=== PATIENT | male | born 1950 | race Caucasian/White ===

== ENCOUNTER → 2016-10-21 | Outpatient (CLI) | payer MEDICARE ==
[2016-10-21 17:46] LABS: BLOOD UREA NITROGEN 17 MG/DL (7-18); CREATININE FOR GFR 1.01 MG/DL (0.70-1.30); GLOMERULAR FILTRATION RATE > 60.0 (>49)
== END | disposition home or self-care (01) ==
LOC: M LAB 15:42
PROVIDERS: ATTEND Urology
DX: C61 Malignant neoplasm of prostate (principal)

== ENCOUNTER → 2016-10-27 | Outpatient (CLI) | payer MEDICARE ==
[~2016-10-27] MED LIST: GASTROGRAFIN SOLUTION 30ML (Q9963) As Ordered ONE; ISOVUE-370 76% 100ML VIAL (Q9967) As Ordered ONE
--- NOTE | 2016-10-27 12:57 | REP ---
Clinical: Prostate cancer. Technique: Axial contrast enhanced images from the lung bases to the pubic symphysis using oral and 100 ml Isovue 370 intravenous contrast material with precontrast images of the abdomen as well as delayed images of the abdomen and pelvis with coronal and sagittal re-formations. Comparison: 11/23/2006. Findings: Lung bases are clear. Visualized heart and pericardium are normal. Liver, spleen, pancreas, gallbladder, bilateral adrenal glands and kidneys are essentially normal. Few benign-appearing subcentimeter renal cysts noted best on delayed imaging. The enteric system demonstrates colonic and predominately sigmoid diverticulosis without evidence for acute obstruction or inflammatory process. Pelvis demonstrates enlarged heterogeneous prostate gland with chronic calcifications to the prostate and seminal vesicles. The bladder is grossly unremarkable. No pelvic fluid or ascites. No intraperitoneal or retroperitoneal adenopathy. Atherosclerotic changes of the vasculature noted without aneurysm. Musculoskeletal structures demonstrate degenerative changes without focal osseous abnormality. Impression: Mildly enlarged heterogeneous prostate gland. Colonic/sigmoid diverticulosis without acute diverticulitis. Signed by Marcell Dorman MD 10/27/2016 12:49 P
--- NOTE | 2016-10-27 15:14 | REP ---
WHOLE BODY RADIONUCLIDE BONE SCAN: HISTORY: Prostate carcinoma. Pain in bilateral hips. Comparison is made with today's CT study. TECHNIQUE: 21.7 mCi of technetium 99m MDP is injected, and standard whole body bone scan imaging is acquired. SCINTIGRAPHIC FINDINGS: There is a normal distribution of skeletal tracer with uptake in bilateral kidneys and in the urinary bladder. There is mild osteoarthritic facet uptake in the left posterior cervical spine as well as arthritic uptake in both shoulders, both wrists, both knees, and both feet. There is no evidence to suggest skeletal metastatic disease. No abnormal uptake is seen in the hips or pelvis. IMPRESSION: No evidence to suggest bony metastatic disease. Signed by Sarkis Pappas MD 10/27/2016 04:51 P
== END | disposition home or self-care (01) ==
LOC: M RAD 10:50
PROVIDERS: ATTEND Urology
DX: C61 Malignant neoplasm of prostate (principal); N40.0 Benign prostatic hyperplasia without lower urinary tract symptoms; K57.90 Diverticulosis of intestine, part unspecified, without perforation or abscess without bleeding
CPT/HCPCS: 74178; 78306; A9503; Q9963; Q9967

== ENCOUNTER 2017-02-02 09:13 | Outpatient (RCR) | payer MEDICARE ==
--- NOTE | 2017-02-02 09:30 | RADONC ---
RADIATION ONCOLOGY SIMULATION NOTE DATE: 02/02/2017 Mr. Peck was taken to the CT scan for CT simulation of his prostate field. CT was accomplished without difficulty or discomfort. Radiation treatment planning is underway and radiation treatments will begin subsequently. I was physically present throughout the course of CT simulation. An immobilization device was created and will be used throughout the course of treatment. It was also created without difficulty or discomfort.
== END 2017-02-12 ==
LOC: M ONCR 09:13
PROVIDERS: ATTEND Radiology Radiation Oncology
DX: C61 Malignant neoplasm of prostate (principal)

== ENCOUNTER → 2017-02-02 | Outpatient (CLI) | payer MEDICARE ==
[2017-02-02 09:32] LABS: MEAN CORPUSCULAR HEMOGLOBIN 32.9 pg (27.0-33.0); MEAN CORPUSCULAR VOLUME 94.1 fl (80.0-96.0); RED CELL DISTRIBUTION WIDTH 11.7 % (11.5-14.5); WHITE BLOOD COUNT 4.7 K/mm3 (4.0-10.0)
== END ==
LOC: M RAD 08:24
PROVIDERS: ATTEND Radiology Radiation Oncology
DX: C61 Malignant neoplasm of prostate (principal); Z79.899 Other long term (current) drug therapy

== ENCOUNTER 2017-02-13 09:12 | Outpatient (RCR) | payer MEDICARE ==
--- NOTE | 2017-02-20 14:09 | RADONC ---
RADIATION ONCOLOGY PROGRESS NOTE DATE: 02/20/2017 CHART NUMBER: [id number] Mr. Peck is presently at a dose of 900 cGy to his prostate and is tolerating treatments quite well at this point with no complaints related to his radiation therapy. He is having no urinary or bowel difficulties and no bone pain. The patient's review of systems is noncontributory. He denies nausea, vomiting, fevers, chills, night sweats, diplopia, headaches, anxiety or depression, anorexia, weight loss, visual disturbances, chest pain, urinary or bowel difficulties, bone pain, or neurological problems. PHYSICAL EXAMINATION: The patient's skin is in good condition with no evidence of radiation change present. There is no moist or dry desquamation. The remainder of his physical exam remains unchanged. Mr. Peck is tolerating treatments quite well and radiation will continue as scheduled.
--- NOTE | 2017-02-27 14:47 | RADONC ---
RADIATION ONCOLOGY PROGRESS NOTE DATE: 02/27/2017 CHART NUMBER: Mr. Peck is presently at a dose of 1800 cGy to his prostate and is tolerating treatments quite well at this point with no complaints related to his radiation therapy. He is having no urinary or bowel difficulties and no bone pain. REVIEW OF SYSTEMS: The patient's review of systems is noncontributory. He denies nausea, vomiting, fevers, chills, night sweats, diplopia, headaches, anxiety or depression, anorexia, weight loss, visual disturbances, chest pain, urinary or bowel difficulties, bone pain or neurological problems. PHYSICAL EXAMINATION: The patient's skin is in good condition with no evidence of radiation change present. The remainder of his physical exam remains unchanged. Mr. Peck is tolerating treatments quite well and radiation will continue as scheduled.
--- NOTE | 2017-03-06 14:08 | RADONC ---
RADIATION ONCOLOGY PROGRESS NOTE DATE: 03/06/2017 CHART NUMBER: [id number] Mr. Peck is presently at a dose of 2700 cGy to his prostate and is tolerating treatments quite well at this point with no complaints related to his radiation therapy. He is having no urinary or bowel difficulties. No bone pain. REVIEW OF SYSTEMS: The patient's review of systems is noncontributory. Denies nausea, vomiting, fevers, chills, night sweats, diplopia, headaches, anxiety or depression, anorexia, weight loss, visual disturbances, chest pain, urinary or bowel difficulties, bone pain, or neurological problems. PHYSICAL EXAMINATION: The patient's skin is in good condition at this point with no evidence of moist or dry desquamation. The remainder of his physical exam remains unchanged. Mr. Peck is tolerating treatments quite well and radiation will continue as scheduled.
--- NOTE | 2017-03-14 14:10 | RADONC ---
RADIATION ONCOLOGY PROGRESS NOTE DATE: 03/14/2017 CHART NUMBER: [id number] Mr. Peck is presently at a dose of 3600 cGy to his prostate and is tolerating treatments quite well at this point with no complaints related to his radiation therapy. He is having no urinary bowel difficulties and no bone pain. REVIEW OF SYSTEMS: The patient's review of systems is noncontributory. Denies nausea, vomiting, fevers, chills, night sweats, diplopia, headaches, anxiety or depression, anorexia, weight loss, visual disturbances, chest pain, urinary or bowel difficulties, bone pain, or neurological problems. PHYSICAL EXAMINATION: The patient's skin is in good condition with no evidence of radiation change present. There is no moist or dry desquamation. The remainder of his physical exam remains unchanged. Mr. Peck is tolerating treatments quite well and radiation will continue as scheduled.
== END 2017-03-15 ==
LOC: M ONCR 09:12
PROVIDERS: ATTEND Radiology Radiation Oncology
DX: C61 Malignant neoplasm of prostate (principal)

== ENCOUNTER → 2017-03-06 | Outpatient (REF) | payer MEDICARE | LOC: M LAB REF 14:57 | PROVIDERS: ATTEND Urology | DX: N39.0 Urinary tract infection, site not specified (principal) ==

== ENCOUNTER 2017-03-16 09:00 | Outpatient (RCR) | payer MEDICARE ==
--- NOTE | 2017-03-21 14:45 | RADONC ---
RADIATION ONCOLOGY PROGRESS NOTE DATE: 03/21/2017 CHART NUMBER: [id number] Mr. Peck is presently at a dose of 4500 cGy to his prostate and is tolerating treatments quite well at this point with no complaints related to his radiation therapy. He is having no urinary or bowel difficulties and no bone pain. The patient's review of systems is noncontributory. He denies nausea, vomiting, fevers, chills, night sweats, diplopia, headaches, anxiety or depression, anorexia, weight loss, visual disturbances, chest pain, urinary or bowel difficulties, bone pain, or neurological problems. PHYSICAL EXAMINATION: The patient's skin is in good condition with no evidence of moist or dry desquamation. The remainder of his physical exam remains unchanged. Mr. Peck is tolerating treatments quite well and radiation will continue as scheduled.
--- NOTE | 2017-03-28 07:31 | RADONC ---
RADIATION ONCOLOGY PROGRESS NOTE DATE: 03/27/2017 CHART NUMBER: [id number] Mr. Peck is presently at a dose of 5220 cGy to his prostate and is tolerating treatments quite well at this point with no significant difficulties related to his radiation therapy. He is having no urinary or bowel problems or bone pain other than some minimal hematuria. REVIEW OF SYSTEMS: The patient's review of systems is noncontributory except for the hematuria. Denies nausea, vomiting, fevers, chills, night sweats, diplopia, headaches, anxiety or depression, anorexia, weight loss, visual disturbances, chest pain, urinary or bowel difficulties, bone pain, or neurological problems. PHYSICAL EXAMINATION: The patient's skin is in good condition with no evidence of radiation change present. There is no moist or dry desquamation. The remainder of his physical exam remains unchanged. Mr. Peck is tolerating treatments quite well and radiation will continue as scheduled.
--- NOTE | 2017-04-03 14:32 | RADONC ---
RADIATION ONCOLOGY PROGRESS NOTE: DATE: 04/03/2017 CHART NUMBER: [id number] Mr. Peck is presently at a dose of 6120 cGy to his prostate and is tolerating treatments quite well at this point with no complaints related to his radiation therapy. He is having no urinary or bowel difficulties and no bone pain. REVIEW OF SYSTEMS: The patient's review of systems is noncontributory. Denies nausea, vomiting, fevers, chills, night sweats, diplopia, headaches, anxiety or depression, anorexia, weight loss, visual disturbances, chest pain, urinary or bowel difficulties, bone pain, or neurological problems. PHYSICAL EXAMINATION: The patient's skin is in good condition with no evidence of moist or dry desquamation. The remainder of his physical exam remains unchanged. Mr. Peck is tolerating treatments quite well and radiation will continue as scheduled.
--- NOTE | 2017-04-11 07:50 | RADONC ---
RADIATION ONCOLOGY PROGRESS NOTE: DATE: 04/10/2017 CHART NUMBER: [id number]. PROGRESS NOTE: Mr. Peck is presently at a dose of 6840 cGy to his prostate and is tolerating treatments quite well at this point with no complaints related to his radiation therapy. He is having no urinary or bowel difficulties and no bone pain. REVIEW OF SYSTEMS: The patient's review of systems is noncontributory. Denies nausea, vomiting, fevers, chills, night sweats, diplopia, headaches, anxiety or depression, anorexia, weight loss, visual disturbances, chest pain, urinary or bowel difficulties, bone pain, or neurological problems. PHYSICAL EXAMINATION: The patient's skin is in good condition with no evidence of moist or dry desquamation. The remainder of his physical exam remains unchanged. Mr. Peck is tolerating treatments quite well and radiation will continue as scheduled.
[2017-07-31] MEDS ORDERED: LUTECAP2 PO (09:57)
[2017-07-31] MEDS ORDERED: LISI40TAB PO (09:57)
[2017-07-31] MEDS ORDERED: FISH100049 PO (09:57)
== END 2017-04-14 ==
LOC: M ONCR 09:00
PROVIDERS: ATTEND Radiology Radiation Oncology
DX: C61 Malignant neoplasm of prostate (principal)

== ENCOUNTER 2017-04-19 08:30 | Outpatient (RCR) | payer MEDICARE ==
--- NOTE | 2017-04-21 09:45 | RADONC ---
RADIATION ONCOLOGY PROGRESS NOTE: DATE OF SERVICE: 04/29/2017 CHART NUMBER: [id number] Mr. Peck is presently at a dose of 7740 cGy to his prostate and is tolerating treatments quite well at the point with no complaints related to his radiation therapy. He is having no significant urinary or bowel difficulties. No bone pain. REVIEW OF SYSTEMS: The patient's review of systems is noncontributory. He denies nausea, vomiting, fevers, chills, night sweats, diplopia, headaches, anxiety or depression, anorexia, weight loss, visual disturbances, chest pain, urinary or bowel difficulties, bone pain, or neurological problems. PHYSICAL EXAMINATION: The patient's skin is in good condition with no evidence of radiation change present. There is no moist or dry desquamation. The remainder of his physical exam remains unchanged. Mr. Peck is tolerating treatments quite well and radiation will continue as scheduled.
--- NOTE | 2017-04-21 10:30 | RADONC ---
RADIATION ONCOLOGY TREATMENT SUMMARY DATE: 04/20/2017 CHART NUMBER: [id number] DIAGNOSIS: Prostate cancer. STAGE: IIB, [id number]. ECOG PERFORMANCE STATUS: 0. TREATMENT SUMMARY Mr. Peck is a very pleasant 66-year-old white male with the diagnosis of a stage IIB, [id number], moderately differentiated Hernesto score 7 (4-3) adenocarcinoma of prostate with a PSA score of 55.05 who presented to us for consideration of definitive external beam radiation therapy with IMRT/IGRT. We treated the patient to his prostate for a total dose 7920 cGy delivered in 44 fractions of 180 cGy each over 63 elapsed days from 02/14/2017 through 04/20/2017. The patient's prostate was treated on a linear accelerator utilizing a 6 MV photon beam via IMRT/IGRT. We initially treated the prostate, seminal vesicles and first echelon of lymph nodes for a dose of 4500 cGy and subsequently coned down to the prostate and seminal vesicles delivering an additional 900 cGy bringing the seminal vesicles to a total dose of 5400 cGy. Finally we boosted the prostate itself for an additional 2520 cGy once again bringing it to a total dose of 7920 cGy. Mr. Peck tolerated his treatments quite well and was able to complete therapy as prescribed. I have scheduled the patient to see me again in 1 month for further followup. He will also continue to be followed by his other physicians as well. cc: MD Ismael Cruz PA
[2017-07-31] MEDS ORDERED: LISI40TAB PO (09:57)
[2017-07-31] MEDS ORDERED: LUTECAP2 PO (09:57)
[2017-07-31] MEDS ORDERED: FISH100049 PO (09:57)
== END 2017-05-15 ==
LOC: M ONCR 08:30
PROVIDERS: ATTEND Radiology Radiation Oncology
DX: C61 Malignant neoplasm of prostate (principal)

== ENCOUNTER → 2017-05-24 | Outpatient (CLI) | payer MEDICARE ==
[~2017-05-24] MED LIST changes: +FISH100049 PO; -GASTROGRAFIN SOLUTION 30ML (Q9963) As Ordered ONE; -ISOVUE-370 76% 100ML VIAL (Q9967) As Ordered ONE; +LISI40TAB PO; +LUTECAP2 PO
--- NOTE | 2017-05-25 07:27 | RADONC ---
RADIATION ONCOLOGY FOLLOWUP NOTE: DATE: 05/24/2017 DIAGNOSIS: Prostate cancer. STAGE: II B, [id number] ECOG PERFORMANCE STATUS: 0 Mr. Peck is a very pleasant 67-year-old white male with the diagnosis of a stage II B, [id number], moderately differentiated Hernesto score 7 (4-3) adenocarcinoma of prostate with a PSA score of 55.05 who is presenting to us today for routine followup visit 1 month post completion of external beam radiation therapy. The patient presents today reporting he is doing quite well with no complaints at this time related to his radiation therapy or disease. He has no urinary or bowel difficulties and no bone pain. REVIEW OF SYSTEMS: The patient's review of systems is noncontributory. He denies nausea, vomiting, fevers, chills, night sweats, diplopia, headaches, anxiety or depression, anorexia, weight loss, visual disturbances, chest pain, urinary or bowel difficulties, bone pain, or neurological problems. PHYSICAL EXAMINATION: The patient is a well-developed, well-nourished male in no acute distress. HEENT exam is normocephalic, atraumatic. Extraocular movements are intact. There is no palpable cervical, supraclavicular, infraclavicular, axillary, or inguinal lymphadenopathy present. Lungs are clear to auscultation and percussion. Heart has a regular rate and rhythm. Abdomen is benign with no hepatosplenomegaly, masses, or tenderness. Rectal examination reveals a normal anal sphincter tone. His prostate is smooth with no evidence of nodularity. Skeletal examination reveals no tenderness to pressure or percussion of the bony skeleton. Extremities reveal no clubbing, cyanosis, or edema. Neurologic exam is grossly intact, as is the remainder of the physical examination. ASSESSMENT: The patient is clinically TONY at this time and will be seen by us again in 3 months for further followup. He will also continue to be followed by his other physicians as well. A PSA was done today and the results are pending. cc: MD Ismael Cruz PA
== END ==
LOC: M ONCR 13:27
PROVIDERS: ATTEND Radiology Radiation Oncology
DX: C61 Malignant neoplasm of prostate (principal)

== ENCOUNTER → 2017-06-20 | Outpatient (CLI) | payer MEDICARE ==
[2017-06-20 12:01] LABS: ANION GAP 6 MEQ/L (8-16); BLOOD UREA NITROGEN 25 MG/DL (7-18); CALCIUM LEVEL 9.3 MG/DL (8.8-10.2); CARBON DIOXIDE LEVEL 28 MEQ/L (21-32); CHLORIDE LEVEL 105 MEQ/L (98-107); CREATININE FOR GFR 0.88 MG/DL (0.70-1.30); GLOMERULAR FILTRATION RATE > 60.0 (>49); GLUCOSE, FASTING 180 MG/DL (80-110); SODIUM LEVEL 139 MEQ/L (136-145)
[2017-06-20 12:07] LABS: POTASSIUM SERUM 5.6 MEQ/L (3.5-5.1)
== END ==
LOC: M LAB 10:41
PROVIDERS: ATTEND Ophthalmology
DX: H25.12 Age-related nuclear cataract, left eye (principal)

== ENCOUNTER → 2017-08-23 | Outpatient (CLI) | payer MEDICARE | LOC: M LAB 11:51 | PROVIDERS: ATTEND Radiology Radiation Oncology | DX: C61 Malignant neoplasm of prostate (principal) ==

== ENCOUNTER → 2017-08-31 | Outpatient (CLI) | payer MEDICARE ==
--- NOTE | 2017-09-01 10:30 | RADONC ---
RADIATION ONCOLOGY FOLLOWUP NOTE DATE: 08/31/2017 CHART NUMBER: [id number] DIAGNOSIS: Prostate cancer. STAGE: II B, [id number]. ECOG PERFORMANCE STATUS: 0. FOLLOWUP NOTE Mr. Peck is a very pleasant 67-year-old white male with the diagnosis of a stage II B, [id number], moderately differentiated Whittier score 7 (3-4) adenocarcinoma of prostate who had an initial PSA score of 55.05 and is presenting to us today for routine followup visit 4 months post completion of external beam radiation therapy. The patient presents today reporting that he is doing quite well with no complaints at this time related to his radiation therapy or disease. He has no urinary or bowel difficulties. No bone pain. REVIEW OF SYSTEMS: The patient's review of systems is noncontributory. Denies nausea, vomiting, fevers, chills, night sweats, diplopia, headaches, anxiety or depression, anorexia, weight loss, visual disturbances, chest pain, urinary or bowel difficulties, bone pain, or neurological problems. PHYSICAL EXAMINATION: The patient is a well-developed, well-nourished male in no acute distress. HEENT exam is normocephalic, atraumatic. Extraocular movements are intact. There is no palpable cervical, supraclavicular, infraclavicular, axillary, or inguinal lymphadenopathy present. Lungs are clear to auscultation and percussion. Heart has a regular rate and rhythm. Abdomen is benign with no hepatosplenomegaly, masses, or tenderness. Rectal examination reveals a normal anal sphincter tone. His prostate is smooth with no evidence of nodularity. Skeletal examination reveals no tenderness to pressure or percussion of the bony skeleton. Extremities reveal no clubbing, cyanosis, or edema. Neurologic exam is grossly intact, as is the remainder of the physical examination. ASSESSMENT: The patient is clinically TONY at this time and will be seen by us again in 6 months for further followup. He will also continue to be followed by his other physicians as well. cc: MD Ismael Cruz PA
== END ==
LOC: M ONCR 14:22
PROVIDERS: ATTEND Radiology Radiation Oncology
DX: C61 Malignant neoplasm of prostate (principal)

== ENCOUNTER → 2018-01-08 | Outpatient (CLI) | payer MEDICARE ==
[2018-01-08 16:16] LABS: PROSTATIC SPECIFIC AG MONITOR 0.26 NG/ML (< 4.0)
== END ==
LOC: M LAB 15:23
DX: C61 Malignant neoplasm of prostate (principal)
CPT/HCPCS: 84153

== ENCOUNTER → 2018-01-17 | Outpatient (CLI) | payer MEDICARE | LOC: M ONCR 11:41 | DX: C61 Malignant neoplasm of prostate (principal) | CPT/HCPCS: G0463 ==

== ENCOUNTER → 2018-07-12 | Outpatient (CLI) | payer MEDICARE ==
[2018-07-12 14:47] LABS: PROSTATIC SPECIFIC AG MONITOR 0.39 NG/ML (< 4.0)
== END ==
LOC: M LAB 13:21
DX: C61 Malignant neoplasm of prostate (principal)
CPT/HCPCS: 84153

== ENCOUNTER → 2018-07-18 | Outpatient (CLI) | payer MEDICARE | LOC: M ONCR 15:31 | DX: C61 Malignant neoplasm of prostate (principal) | CPT/HCPCS: G0463 ==

== ENCOUNTER → 2019-02-28 | Outpatient (CLI) | payer MEDICARE ==
[~2019-02-28] MED LIST changes: +LISI40TA PO; -LISI40TAB PO
== END ==
LOC: M LAB 11:23
PROVIDERS: ATTEND Radiology Radiation Oncology
DX: C61 Malignant neoplasm of prostate (principal)

== ENCOUNTER → 2019-03-07 | Outpatient (CLI) | payer MEDICARE ==
--- NOTE | 2019-03-10 14:57 | RADONC ---
RADIATION ONCOLOGY FOLLOWUP NOTE DATE: 03/07/2019 CHART #: [id number] DIAGNOSIS: Prostate cancer. STAGE: II B, [id number]. ECOG PERFORMANCE STATUS: 0. FOLLOWUP NOTE: Mr. Peck is a very pleasant 69-year-old white male with the diagnosis of a stage II B, [id number], moderately differentiated Hernesto score 7 (3-4) adenocarcinoma of the prostate with an initial PSA score of 55.05 who is presenting to us today for routine followup visit almost 2 years post completion of external beam radiation therapy. The patient presents today reporting that he is doing quite well with no complaints at this time related to his radiation therapy or disease. He has no urinary or bowel difficulties and no bone pain. REVIEW OF SYSTEMS: The patient's review of systems is noncontributory. Denies nausea, vomiting, fevers, chills, night sweats, diplopia, headaches, anxiety or depression, anorexia, weight loss, visual disturbances, chest pain, urinary or bowel difficulties, bone pain, or neurological problems. PHYSICAL EXAMINATION: The patient is a well-developed, well-nourished male in no acute distress. HEENT exam is normocephalic, atraumatic. Extraocular movements are intact. There is no palpable cervical, supraclavicular, infraclavicular, axillary, or inguinal lymphadenopathy present. Lungs are clear to auscultation and percussion. Heart has a regular rate and rhythm. Abdomen is benign with no hepatosplenomegaly, masses, or tenderness. Rectal examination reveals a normal anal sphincter tone. His prostate is smooth with no evidence of nodularity. Skeletal examination reveals no tenderness to pressure or percussion of the bony skeleton. Extremities reveal no clubbing, cyanosis, or edema. Neurologic exam is grossly intact, as is the remainder of the physical examination. ASSESSMENT: The patient is clinically actually doing well. Unfortunately, the patient's PSA has been increasing slowly over the past couple of years. On 05/24/2017 it was 0.04. On 08/23/2017, it was 0.05. On 01/08/2018, it was 0.26 On 07/12/2018, it had risen to 0.39. It is now as of 02/28/2019 at 0.87. I discussed with the patient in detail my concerns for his rising PSA. The patient travels to [place] for much of the year and is not followed there. In light of this, I have scheduled him to see me in early July before his next trip down to [place] for a repeat PSA level. I have discussed with him the ramifications of a rising PSA and various therapeutic alternatives. Once again, in summary, I will be seeing this patient in early July to reevaluate his PSA. The rate of rise appears to be accelerating somewhat and I have expressed my concern. The patient is not interested in hormonal treatments at this time. He does wish to monitor this a little further. cc: MD Ismael Cruz PA
== END ==
LOC: M ONCR 12:46
PROVIDERS: ATTEND Radiology Radiation Oncology
DX: C61 Malignant neoplasm of prostate (principal)

== ENCOUNTER → 2019-07-16 | Outpatient (CLI) | payer MEDICARE | LOC: M LAB 15:14 | PROVIDERS: ATTEND Radiology Radiation Oncology | DX: C61 Malignant neoplasm of prostate (principal) ==

== ENCOUNTER → 2019-07-24 | Outpatient (CLI) | payer MEDICARE ==
--- NOTE | 2019-07-26 08:17 | RADONC ---
RADIATION ONCOLOGY FOLLOWUP NOTE DATE: 07/24/2019 CHART #: [id number] DIAGNOSIS: Prostate cancer. STAGE: II B, [id number]. ECOG PERFORMANCE STATUS: 0. FOLLOWUP NOTE: Mr. Peck is a very pleasant 69-year-old white male with the diagnosis of a stage II B, [id number], moderately differentiated Hernesto score 7 (3-4) adenocarcinoma of the prostate with an initial PSA score of 55.05 who is presenting to me today for routine followup visit 2 years and 3 months post completion of external beam radiation therapy. The patient presents today reporting that he is doing quite well with no complaints at this time related to his radiation therapy or disease. He has no urinary or bowel difficulties. No bone pain. REVIEW OF SYSTEMS: The patient's review of systems is noncontributory. Denies nausea, vomiting, fevers, chills, night sweats, diplopia, headaches, anxiety or depression, anorexia, weight loss, visual disturbances, chest pain, urinary or bowel difficulties, bone pain, or neurological problems. PHYSICAL EXAMINATION: The patient is a well-developed, well-nourished male in no acute distress. HEENT exam is normocephalic, atraumatic. Extraocular movements are intact. There is no palpable cervical, supraclavicular, infraclavicular, axillary, or inguinal lymphadenopathy present. Lungs are clear to auscultation and percussion. Heart has a regular rate and rhythm. Abdomen is benign with no hepatosplenomegaly, masses, or tenderness. Rectal examination reveals a normal anal sphincter tone. His prostate is smooth with no evidence of nodularity. Skeletal examination reveals no tenderness to pressure or percussion of the bony skeleton. Extremities reveal no clubbing, cyanosis, or edema. Neurologic exam is grossly intact, as is the remainder of the physical examination. ASSESSMENT: The patient is clinically doing well at this point. I have repeated his PSA on 07/16/2019 and it is now 0.62, down from his 02/28/2019 PSA of 0.87. The general trend however has been up and he is relatively stable, although shows biochemical failure. The patient does not wish to consider hormonal therapy at this time unless absolutely necessary. He reports that he is leaving for [place] and will return the first week of February. He is doing otherwise quite well. I did ask whether or not he will have a physician in [place] and they are trying to find one down there since they go down quite frequently. In light of all this, I have set him up for followup in our office when he returns the first week of February and we will repeat a PSA then. I let him know that if he does establish a primary care physician in [place] when they draw blood in 3 months or so I would request a PSA be done if possible at that time as well. At this point, fortunately, the PSA has come down somewhat and we will continue to follow him closely. We will continue to follow him for this issue. cc: MD Ismael Cruz PA
== END ==
LOC: M ONCR 14:25
PROVIDERS: ATTEND Radiology Radiation Oncology
DX: C61 Malignant neoplasm of prostate (principal)

== ENCOUNTER → 2020-04-09 | Outpatient (REF) | payer MEDICARE | LOC: M LAB REF 13:33 | PROVIDERS: ATTEND Physician Assistant | DX: R30.0 Dysuria (principal) ==

== ENCOUNTER → 2020-04-15 | Outpatient (CLI) | payer MEDICARE | LOC: M LAB 14:19 | PROVIDERS: ATTEND Radiology Radiation Oncology | DX: C61 Malignant neoplasm of prostate (principal) ==

== ENCOUNTER → 2020-04-22 | Outpatient (CLI) | payer MEDICARE ==
--- NOTE | 2020-04-30 18:38 | RADONC ---
RADIATION ONCOLOGY FOLLOWUP NOTE DATE: 04/22/2020 CHART NUMBER: [id number] DIAGNOSIS: Prostate cancer. STAGE: II B, T2b, N0, M0. ECOG PERFORMANCE STATUS: Zero. FOLLOWUP NOTE: Mr. Pekc is a very pleasant 70-year-old white male with a diagnosis of a stage II B, T2b, N0, M0, moderately differentiated Yolo score 7 (3-4) adenocarcinoma of the prostate with initial PSA score of 55.05, who is presenting to us today for routine followup visit 3 years post completion of external beam radiation therapy. The patient presents today reporting that this time he is doing quite well with no complaints related to his radiation therapy or disease. He is having no urinary or bowel difficulties. No bone pain. The patient reports that approximately 2 weeks ago he developed a urinary tract infection with urinary hesitancy. He was seen by his primary care doctor and initiated antibiotics, which he is just now completing. He had his PSA level done on 04/15/2020, right in the middle of his bladder inflammation issue. It was 1.10. This is up from previous PSA on 07/16/2019 which was 0.62. Prior to that, on 02/28/2019 the PSA was 0.87. The patient's review of systems now is noncontributory. He denies nausea, vomiting, fevers, chills, night sweats, diplopia, headaches, anxiety or depression, anorexia, weight loss, visual disturbances, chest pain, urinary or bowel difficulties, bone pain, or neurological problems. PHYSICAL EXAMINATION: The patient is a well-developed, well-nourished male in no acute distress. HEENT exam is normocephalic, atraumatic. Extraocular movements are intact. There is no palpable cervical, supraclavicular, infraclavicular, axillary, or inguinal lymphadenopathy present. Lungs are clear to auscultation and percussion. Heart has a regular rate and rhythm. Abdomen is benign with no hepatosplenomegaly, masses, or tenderness. Rectal examination reveals a normal anal sphincter tone. His prostate is smooth with no evidence of nodularity. Skeletal examination reveals no tenderness to pressure or percussion of the bony skeleton. Extremities reveal no clubbing, cyanosis, or edema. Neurologic exam is grossly intact, as is the remainder of the physical examination. ASSESSMENT: The patient is clinically doing well at this point. I suspect his bump up in PSA may be related to the inflammatory issues of the bladder. His PSA has been going up and down in the past. For the sake of thoroughness, however, I am asking him to come back in at the end of July for a subsequent followup visit and repeat of his PSA level before he moves to [place] in August. We are hoping to be reassured that the PSA level has come back down now that his bladder infection is resolved. In the meantime, the patient will also be followed by his other physicians. cc: MD Ismael Cruz PA
== END ==
LOC: M ONCR 13:21
PROVIDERS: ATTEND Radiology Radiation Oncology
DX: C61 Malignant neoplasm of prostate (principal); Z92.3 Personal history of irradiation

== ENCOUNTER → 2020-06-07 | Outpatient (REF) | payer MEDICARE | LOC: M LAB REF 12:28 | PROVIDERS: ATTEND Nurse Practitioner Family | DX: N39.0 Urinary tract infection, site not specified (principal) ==

== ENCOUNTER → 2020-07-27 | Outpatient (CLI) | payer MEDICARE | LOC: M LAB 13:10 | PROVIDERS: ATTEND Radiology Radiation Oncology | DX: C61 Malignant neoplasm of prostate (principal) ==

== ENCOUNTER → 2020-08-05 | Outpatient (CLI) | payer MEDICARE ==
--- NOTE | 2020-08-05 13:16 | RADONC ---
Radiation Oncology Hx/FUP Radiation Oncology Hx/FUP Date of Service: Aug 05, 2020 Pt Identifier Tad Peck is a 70 year old male seen for a followup visit today at the department of radiation oncology for a history of high risk prostate cancer T1c [place] 4+3=7 PSA 55, he is s/p EBRT to 79.2 Gy in 44 fractions completed 04/20/17. He completed [address]T with Dr[address] Rivera in 2018. Diagnosis/Treatment History Oncologic History PSA trend: Elevated PSA dating back to 201004/19/16 55 ng/ml 05/24/17 0.04 01/08/18 0.26 07/12/18 0.39 02/28/19 0.87 07/16/19 0.62 04/15/20 1.10 (Bladder infection) 07/27/20 0.77 Interval History Was treated for a UTI in April, failed macrobid, recurred, cipro was effective. Now voiding without any difficulty. Urinary stream good. Has mild daytime frequency occasional nocturia, all not bothersome. Has a regular BM daily. No bleeding per rectum. Appetite good weight stable. Heading to [place] shortly. Current Therapy None Stage High risk prostate cancer T1c [place] 4+3=7 PSA 55 Social History: Non-smoker Non-drinker Allergies / Meds Allergies: Coded Allergies: No Known Allergies (Unverified , 07/31/17) Home Meds Reported Medications Lutein Vision Blend (Lutein Vision Blend) 1 Cap Cap, 1 CAP PO DAILY, CAP 07/31/17 Fish Oil (Fish Oil 1000 mg) 1 Cap Cap, 1 CAP PO DAILY, CAP 07/31/17 Lisinopril (Lisinopril) 40 Mg Tab, 40 MG PO DAILY, TAB 07/31/17 Review of Systems Review of Systems Constitutional: Denies: ROS Unabtainable, Chills, Fever, Malaise, Night Sweats, Weakness, Fatigue, Weight Loss, Lethargy, Normal appetite, Other symptoms Eyes: Denies: Pain, Vision change, Conjunctivae inflammation, Eyelid inflammation, Redness, Other HEENT: Denies: Head Aches, Ear Pain, Dysphagia, Sinus Congestion, Post Nasal Drip, Sore Throat, Epistaxis, Other Symptoms Skin: Denies: Rash, Lesions, Jaundice, Bruising, Other Pulmonary: Denies: Dyspnea, Cough, Pleuritic Chest Pain, Other Symptoms Cardiovascular: Denies: Chest Pain, Palpitations, Orthopnea, Paroxysmal Noc. Dyspnea, Edema, Lt Headedness, Other Symptoms Gastrointestinal: Denies: Nausea, Vomiting, Abdominal Pain, Diarrhea, Constipation, Melena, Hematochezia, Other Symptoms Genitourinary: Denies: Dysuria, Frequency, Incontinence, Hematuria, Retention, Other Symptoms Endocrine: Denies: Polydipsia, Polyphagia, Polyuria, Heat Intolerance, Cold Intolerance, Other Endocrine Sx Musculoskeletal: Denies: Neck pain, Shoulder pain, Arm pain, Back pain, Hand pain, Leg pain, Foot pain, Joint pain, Muscle pain, Spasms, Gout, Joint sweling, Muscle stiffness, Midthoracic pain, Other Neurological: Denies: Weakness, Numbness, Incoordination, Change in Speech, Confusion, Seizures, Other Symptoms Psych: Denies: Mood Normal, Anxiety, Depression, Memory Issues, Thoughts of Self Harm, Anger, Thoughts of harming Other, Other Psych Physical Examination Vital Signs Ht 70" Wt 209 lb BMI 29 T 98 P 88 RR 18 BP 141/69 O2 93% Pain 0 Fatigue 0 General Exam: Positive: Alert, Cooperative, No Acute Distress Eye Exam: Positive: PERRLA, EOMI ENT EXAM: Positive: Pharynx Normal Neck Exam: Negative: Lymphadenopathy Chest Exam: Positive: Clear to auscultation, Normal air movement Heart Exam: Positive: Rate Normal, Regular Rhythm Abdomen Exam: Positive: Normal bowel sounds, Soft; Negative: Tenderness Extremity Exam: Negative: Edema Skin Exam: Positive: Nl turgor and temperature Neuro Exam: Positive: Normal Gait, Normal Speech, Cranial Nerves 3-12 NL Psych Exam: Positive: Mental status NL, Mood NL, Anxiety Other Physical Findings Deferred exam in setting of downtrending PSA and recent UTI Diagnostic and Laboratory Diagnostic Review Radiologic images, relevant labs and pathology reports were personally reviewed and discussed with Mr. Peck. Assessment and Plan Impression Assessment Mr. Peck is a 70 year old male with a history of high risk prostate cancer T1c [place] 4+3=7 PSA 55, he is s/p EBRT to 79.2 Gy in 44 fractions completed 04/20/17. He completed [address] Rivera in 2018. He is doing well. He recovered from a UTI this Summer which was the likely cause of the increased PSA noted in April. His urinary symptoms are returned to baseline and his PSA is again downtrending. Therefore I will see him again in 1 year with a PSA check. Performance Status ECOG 0 Plan Follow up in 1 year with PSA Mr. Peck was encouraged to call with questions or concerns in the interim period. JOSE HARRIS MD Aug 05, 2020 13:16
== END ==
LOC: M ONCR 10:58
PROVIDERS: ATTEND General Practice
DX: Z85.46 Personal history of malignant neoplasm of prostate (principal)

== ENCOUNTER → 2021-07-22 | Outpatient (CLI) | payer MEDICARE ==
[~2021-07-22] MED LIST changes: -LISI40TA PO; +LISI40TA4 PO
== END ==
LOC: M LAB 15:10
PROVIDERS: ATTEND General Practice
DX: C61 Malignant neoplasm of prostate (principal)

== ENCOUNTER → 2021-07-29 | Outpatient (CLI) | payer MEDICARE ==
--- NOTE | 2021-07-29 12:28 | RADONC ---
Radiation Oncology Hx/FUP Radiation Oncology Hx/FUP Date of Service: Jul 29, 2021 Pt Identifier Tad Peck is a 71 year old male seen for a followup visit today at the department of radiation oncology for a history of high risk prostate cancer T1c [place] 4+3=7 PSA 55, he is s/p EBRT to 79.2 Gy in 44 fractions completed 04/20/17. He completed [address]T with Dr[address] Rivera in 2018. Diagnosis/Treatment History Oncologic History PSA trend: Elevated PSA dating back to 201004/19/16 55 ng/ml 05/24/17 0.04 01/08/18 0.26 07/12/18 0.39 02/28/19 0.87 07/16/19 0.62 04/15/20 1.10 (Bladder infection) 07/27/20 0.77 07/22/21 0.74 Interval History Tad feels generally well. He had a single episode of scant BRBPR 2-3 months ago. He has a colonoscopy scheduled for later this month. He has had normal BMs without blood since then. He has 1-3x nocturia, not bothersome, and he has no issues with stream, emptying, or daytime frequency. He has preserved energy and appetite. Current Therapy Surveillance Stage High risk prostate cancer T1c [place] 4+3=7 PSA 55 Social History: Non-smoker Non-drinker Allergies / Meds Allergies: Coded Allergies: No Known Allergies (Unverified , 07/31/17) Home Meds Reported Medications Lutein Vision Blend (Lutein Vision Blend) 1 Cap Cap, 1 CAP PO DAILY, CAP 07/31/17 Fish Oil (Fish Oil 1000 mg) 1 Cap Cap, 1 CAP PO DAILY, CAP 07/31/17 Lisinopril (Lisinopril) 40 Mg Tab, 40 MG PO DAILY, TAB 07/31/17 Review of Systems Review of Systems Constitutional: Denies: Fatigue, Weight Loss Gastrointestinal: Reports: Hematochezia; Denies: Abdominal Pain, Diarrhea Genitourinary: Denies: Dysuria, Frequency, Incontinence, Retention Hematologic: Denies: Bruising, Bleeding Excessively Neurological: Denies: Weakness, Numbness Psych: Reports: Mood Normal Physical Examination Vital Signs Wt 206 lbs T 98.3 P 85 RR 18 BP 166/92 O2 96% Pain 0 Fatigue 0 General Exam: Alert, Cooperative, No Acute Distress Eye Exam: JULIA ACOSTA ENT EXAM: Atraumatic Neck Exam: Supple Chest Exam: Clear to auscultation Heart Exam: Rate Normal Abdomen Exam: Soft Extremity Exam: Negative: Edema Skin Exam: Nl turgor and temperature Neuro Exam: Normal Gait, Normal Speech, Cranial Nerves 3-12 NL Psych Exam: Mental status NL Other Physical Findings SKYLER deferred low PSA Diagnostic and Laboratory Diagnostic Review Radiologic images, relevant labs and pathology reports were personally reviewed and discussed with Mr. Peck. Assessment and Plan Impression Assessment Mr. Peck is a 71 year old male with a history of high risk prostate cancer T1c [place] 4+3=7 PSA 55, he is s/p EBRT to 79.2 Gy in 44 fractions completed 04/20/17. He completed [address] Rivera in 2018. Discussed that BRBPR s/p RT can be radiation proctitis, asked that he alert the GI physician he has a history of prostate RT. Could also be hemorrhoidal. He has no urinary bother or other bowel issues. Going to [place] at the end of the month. PSA is under control at 0.74. Follow up in 12 months with PSA. Performance Status ECOG 0 Plan 12 months with PSA Mr. Peck was encouraged to call with questions or concerns in the interim period. Billing Statement Total time of [20] minutes was spent preparing for the visit [1], obtaining HPI [5], examining the patient [1], reviewing diagnostic tests [1], discussing management options [5], coordinating care [1], and writing this note [6]. JOSE HARRIS MD Jul 29, 2021 12:28
== END ==
LOC: M ONCR 11:21
PROVIDERS: ATTEND General Practice
DX: C61 Malignant neoplasm of prostate (principal); K92.1 Melena; Z92.3 Personal history of irradiation

== ENCOUNTER → 2021-08-06 | Outpatient (CLI) | payer MEDICARE ==
[~2021-08-06] MED LIST changes: +FISH1000 PO; +GARL1000 PO; +GNP10TAB20 PO
== END ==
LOC: M LABSMTC 10:43
PROVIDERS: ATTEND Anesthesiology
DX: Z01.812 Encounter for preprocedural laboratory examination (principal); Z20.822 Contact with and (suspected) exposure to COVID-19

== ENCOUNTER 2021-08-11 09:24 | Day surgery (SDC) | payer MEDICARE ==
[~2021-08-11] VITALS: Ht 182.9 cm; Wt 91.1 kg
[~2021-08-11 09:24] MED LIST changes: +NS 1,000 ML IV ONE
--- OUTSIDE RECORDS SUMMARY | 2021-08-11 09:29 | CCD | Continuity of Care Document ---
Author Author Tad COLEY [facility] Organization Unknown Address [address] [place] [address] Phone [phone] Care Team Providers Care Family Service Assistant Name Role Phone Atilio Oscar M.D. AUTM [phone] Problems Active Problems Provider Date Tobacco user Sarah Camejo D.O. Onset: 07/16/2010 Impaired fasting glycemia Ismael Coley RPA Onset: 06/2014 Chronic obstructive lung disease Ismael Coley RPA Onse t: 07/17/2015 Essential hypertension Ismael Coley RPA Onset: 016 History of malignant neoplasm of prostate Ismael Coley RPA Onset: 04/19/2016 Nocturia Ismael Coley RPA Onset: 11/01/2016 Hyperlipidemia Ismael Coley RPA Onset: 11/01/2016 Note: Prior to visit here Social History Type Date Description Comments Sex Unknown Tobacco Use Start: Unknown Current Cigarette Smoker 1 Pack Daily Smoking for 41 years ETOH Use current.beer.weekly.six packs.1 Recreational Drug Use Never Used Drugs Tobacco Use Start: Unknown Patient is a current smoker, smo kes every day Seat Belt/Car Seat always Allergies and adverse reactions Description No Known Drug Allergies Medications Active Medications SIG Qnty Indications Ordering Provide r Date Moderna Covid-19 Vaccine 100mcg/0.5ML Suspension 12/12/20 & 01/13/21 Derik Miguel D.O. , FAAFP 06/08/2021 Levofloxacin 500mg Tablets 1 by mouth every day 14tabs Derik Miguel D.O., FAAFP Albuterol Sulfate HFA 108(90Base) mcg/Act Aerosol 2 puffs inhaled four times a day as needed 8.500gm Derik Miguel D.O., FAAFP 06/16/2020 Breo Ellipta 100-25mcg/Inh Aerosol 1 puff by mouth every day Samples Derik Miguel D.O., FAAFP 03/11/2020 Prevnar 13 Suspension injection x 1 .500ml Derik Miguel D.O., FAAFP 09/29/2017 Shingrix 50mcg Suspension Rec injection 1units Derik Miguel D.O., FAAFP 09/29/2017 Lisinopril 40mg Tablets take one tablet by mouth every day 90tabs [facility] D.O., [facility] Lutein 10mg Tablets 1 p.o. qd OTC Unknown Medications Administered in Office Medication SIG Qnty Indications Ordering Provider Date Injection (SC)/(Im) Injection Gonsalo Holt . M.D 09/13/2011 Immunizations CPT Code Status Date Vaccine Lot # [id number] Given 08/12/2020 Influenza Virus Vaccine, Quadrivalent, Slit Virus, Im Use 3Y & Up [id number] Given 08/02/2019 Pneumococcal Immunization [id number] 68688 Given 08/02/2019 Influenza Virus Vaccine, Quadrivalent, Slit Virus, Im Use 3Y & Up [id number] 32753 Given 08/01/2018 Influenza Virus Vaccine, Quadrivalent, Slit Virus, Im Use 3Y & Up [id number] 60889 Given 08/01/2016 Influenza Virus Vaccine, Quadrivalent, Slit Virus, Im Use 3Y & Up [id number] 34628 Given 07/17/2015 Influenza Vaccin e (Fluzone) 3Yrs Of Age Or Older Medicare Plans [id number] 55452 Given 07/29/2014 Influenza Vaccin e (Fluzone) 3Yrs Of Age Or Older Medicare Plans [id number] 39489 Given 07/29/2014 Pneumococcal Immunization [id number] 17338 Given 09/13/2011 Influenza Virus Vac. Split Virus Individuals 3 Years And Above [id number] Vital Signs Date Vital Result Comment 06/08/2021 11:02am BP Systolic 128 mmHg BP Diastolic 72 mmHg Body Temperature 97.8 F Heart Rate 77 /min Respiratory Rate 18 /min Height 72 inches 6'0" Weight 203.00 lb Swan Body Weight 178 lb BMI (Body Mass Index) 27.5 kg/m2 O2 % BldC Oximetry 98 % 03/02/2021 9:04am BP Systolic 130 mmHg BP Diastolic 80 mmHg Body Temperature 98.0 F Heart Rate 85 /min Respiratory Rate 18 /min Height 72 inches 6'0" Weight 201.00 lb Swan Body Weight 178 lb BMI (Body Mass Index) 27.3 kg/m2 O2 % BldC Oximetry 97 % Results Test Acquired Date Facility Test Result H/L Range Note Coronavirus 2019 Nasopharygeal 08/06/2021 [facility] ([facility]) [phone] Coronavirus 2019 Nasopharygeal ASSAY INFORMATIO <SEE N OTE> 1 Aerobic Bacterial Culture 03/02/2021 [facility] [place] Aerobic Bacterial Culture Final report 2 , 3 Result 1 See Comment: 4 Laboratory test finding 03/02/2021 [facility] Hemoglobin A1c 5.3 % 4.50-6.20 CBC 03/02/2021 [facility] WBC 4.1 10E3/uL 4.1 - 10.9 5 RBC 3.86 10E6/uL Low 4.20 - 6.30 HGB 12.4 g/dL 12.0 - 18.0 HCT 37.3 % 37.0 - 51.0 MCV 96.6 fL 80.0 - 97.0 MCH 32.1 pg High 26.0 - 32.0 MCHC 33.2 g/dL 31.0 - 36.0 PLT 255 10E3/uL 140 - 440 RDW-CV 13.8 % 11.5 - 14.5 Lym% 29.0 % 10.0 - 58.5 Neut% 60.1 % 37.0 - 92.0 MXD% 10.9 % 0.1 - 24.0 Lym# 1.2 10E3/uL 0.6 - 4.1 Neut# 2.5 % 2.0 - 7.8 MXD# 0.4 10E3/uL 0.0 - 1.8 MPV 9.1 fL 9.0 - 13.0 CMP 03/02/2021 [facility] Glu 110 mg/dL 70 - 110 BUN 14 mg/dL 8 - 23 Creat 0.9 mg/dL 0.7 - 1.2 BUN/Creatinine Ratio 16.6 CALC Na 138 mmol/L 136 - 145 K 4.9 mmol/L 3.5 - 5.1 CL 105.4 mmol/L 98.0 - 107.0 Co2 22.5 mmol/L 22.0 - 29.0 CA 9.3 mg/dL 8.6 - 10.2 TP 6.3 g/dL Low 6.6 - 8.7 Alb 4.2 g/dL 3.5 - 5.2 A/G Ratio 1.9 CALC Globulin 2.2 CALC Alp 81.5 U/L 40 - 129 Alt (SGPT) 16 U/L 0 - 41 Ast (Sgot) 14 U/L 0 - 40 Tbili 0.42 mg/dL 0.0 - 1.2 Osmolality-Calculated 277.1 CALC Anion Gap 15 mmol/L eGFR 99 # Calc 6 eGFR Non-Afr. [place] Citizen 85 # Calc 7 Lipid Panel 03/02/2021 [facility] Chol 179 mg/dL 0 - 200 Trig 60 mg/dL 35 - 200 HDL 57 mg/dL High 35 - 55 LDL_C 110 Calc 75 - 129 Cho/HDL Ratio 3.1 CALC Laboratory test finding 03/02/2021 [facility] TSH 2.946 ulU/mL 0.60 - 4.8 1 ASSAY INFORMATION: Real Time RT-PCR NOTE: The COVID-19 assay has been cleared by the U.S. Food and Drug Administration under the Emergency Use Authorization (EUA). [facility] and [facility] are designated as high complexity laboratories by the Clinical Laboratory Improvement Amendments of 1988(CLIA) and are qualified to perform this test. Not Detected 2 SRC:RIGHT LEG INFECTION 3 Source of Specimen: RIGHT LE G INFECTION 4 Source of Specimen: RIGHT LE G INFECTION No growth in 36 - 48 hours. 5 NORMAL RANGES Age WBC RBC HGB HCT MCV PLT Adult M 4.1-10.9 4.20-6.30 12.0-18.0 37.0-51.0 80-97 140-440 Adult F 4.1-10.9 4.04-5.48 12.0-18.0 37.0-51.0 80-97 140-440 0 -1 Yr 5.0-20.0 3.9-5.9 15-18 MV: 44 MV: 91 MV: 277 2-9 Yr. 6.0-17.0 3.8-5.4 11-13 MV: 37 MV: 78 MV: 300 10 Yrs. 5.0-13.0 3.8-5.4 12-15 MV: 39 MV: 80 MV: 250 NOTE: * FOR ADULT BLACK MALES AND FEMALES, NORMAL WBC IS 2.9-7.7 K/ML * FOR ADULT BLACK MALES AND FEMALES, NORMAL RBC,HGB, AND HCT IS 5% LESS SOURCE FOR DATA: [employer] 1800 OPERATION MANUAL( AUTOMATED BLOOD COUNTS AND DIFF.) APPENDIX B-3 CHRONIC KIDNEY DISEASE STAGING PER NKF: MALE GFR INTERPRETATION: 20-49 YRS: >60 mL/min Normal 50-59 YRS: >56 mL/min Normal 60-69 YRS: >49 mL/min Normal 70-79 YRS: >42 mL/min Normal 80 and above >35 mL/min Normal FEMALE GRF INTERPRETATION: 20-39 YRS: >60 mL/min Normal 40-49 YRS: >58 mL/min Normal 50-59 YRS: >51 mL/min Normal 60-69 YRS: >45 mL/min Normal 70-79 YRS: >39 mL/min Normal 80 and above >32 mL/min NormalCLASSIFICATION CHOLESTEROL FOR ADULTS CHILDREN/ADOLESCENTS* DESIRABLE: <200 MG/DL <170 MG/DL BORDER-LINE HIGH RISK: 200-239 MG/DL 170-199 MG/DL HIGH RISK: >240 MG/DL >200 MG/DL CLASS. FOR PRIMARY LDL CHOL PREVENTION: LDL CHOL-CHILD/ADOLESCENTS* DESIRABLE: <130 MG/DL <110 MG/DL BORDERLINE-HIGH RISK: 130-159 MG/DL 110-129 MG/DL HIGH RISK: >160 MG/DL >130 MG/DL *CHILDREN AND ADOLESCENTS REPRESENTS INDIVIDUALA AGED 2-19 YEARS EXCLUSIVE. 6 CKD-EPI 7 CKD-EPI Procedures Date Code Description Status 06/08/2021 48429 Office/Outpatient Established Mo d MDM 30-39 Min Completed 03/02/2021 32655 Office/Outpatient Established Mo d MDM 30-39 Min Completed Medical Devices Description No Information Available Encounters Type Date Location Provider Dx Diagnosis Office Visit 06/08/2021 11:00a [facility] Ismael Coley, RP A I10 Essential (primary) hypertension J44.9 Chronic obstructive pulmonar y disease, unspecified F17.210 Nicotine dependence, cigaret uzma, uncomplicated Office Visit 03/02/2021 9:00a [facility] Ismael Coley, RP A I10 Essential (primary) hypertension J44.9 Chronic obstructive pulmonar y disease, unspecified F17.210 Nicotine dependence, cigaret uzma, uncomplicated L08.9 Local infection of the skin and subcutaneous tissue, unsp R73.01 Impaired fasting glucose Assessments Date Code Description Provider 06/08/2021 I10 Essential (primary) hypertension Ismael Coley, RPA 06/08/2021 J44.9 Chronic obstructive pulmonary di sease, unspecified Ismael Coley, RPA 06/08/2021 F17.210 Nicotine dependence, cigarettes, uncomplicated Ismael Coley, RPA 03/02/2021 I10 Essential (primary) hypertension Ismael Coley, RPA 03/02/2021 J44.9 Chronic obstructive pulmonary di sease, unspecified Ismael Coley, RPA 03/02/2021 F17.210 Nicotine dependence, cigarettes, uncomplicated Ismael Coley, RPA 03/02/2021 L08.9 Local infection of t he skin and subcutaneous tissue, unspecified Ismael Coley, RPA 03/02/2021 R73.01 Impaired fasting glucose Ismael Coley, CHINTAN Plan of Treatment Future Appointment(s):* 08/13/2021 11:00 am - Ismael Coley RPA at [facility] Functional Status Description No Information Available Mental Status Description No Information Available Referrals Refer to Reason for Referral Status Appt Date Anjel Short M.D. Blood in stool-no prior colonoscopy Sent 07/08/2021 [address], [address] [place] [id number] [phone]
--- OUTSIDE RECORDS SUMMARY | 2021-08-11 09:29 | CCD | Continuity of Care Document ---
Author Author Tad COLEY [facility] Organization Unknown Address [address] [place] [address] Phone [phone] Care Team Providers Care Job Service Specialist Name Role Phone Atilio Oscar M.D. AUTM [phone] Problems Active Problems Provider Date Tobacco user [...] kes every day Seat Belt/Car Seat always Allergies, Adverse Reactions, Alerts Description No Known Drug Allergies Medications Active [...] mouth every day 90tabs [facility]ik [facility] D.O., [facility] Lutein 10mg Tablets 1 p.o. qd OTC Unknown Medications Administered in Office Medication SIG Qnty Indications Ordering Provider Date Injection (SC)/(Im) Injection Gonsalo Holt . M.D 09/13/2011 Immunizations CPT Code Status Date Vaccine Lot # [id number] Given 08/12/2020 Influenza Virus Vaccine, Quadrivalent, Slit Virus, Im Use 3Y & Up [id number] 60579 Given 08/02/2019 Pneumococcal Immunization S0 [id number] 57420 Given 08/02/2019 Influenza Virus Vaccine, Quadrivalent, Slit Virus, Im Use 3Y & Up [id number] 68268 Given 08/01/2018 Influenza Virus Vaccine, Quadrivalent, Slit Virus, Im Use 3Y & Up [id number] 23306 Given 08/01/2016 Influenza Virus Vaccine, Quadrivalent, Slit Virus, Im Use 3Y & Up [id number] 83931 Given 07/17/2015 Influenza Vaccin e (Fluzone) 3Yrs Of Age Or Older Medicare Plans [id number] 92073 Given 07/29/2014 Influenza Vaccin e (Fluzone) 3Yrs Of Age Or Older Medicare Plans [id number] 41523 Given 07/29/2014 Pneumococcal Immunization [id number] 45672 Given 09/13/2011 Influenza Virus Vac. Split Virus Individuals 3 Years And Above [id number] Vital Signs Date Vital Result Comment 06/08/2021 11:02am BP Systolic 128 mmHg BP Diastolic 72 mmHg Body Temperature 97.8 F Heart Rate 77 /min Respiratory Rate 18 /min Height 72 inches 6'0" Weight 203.00 lb [place] Body Weight 178 lb BMI (Body Mass Index) 27.5 kg/m2 O2 % BldC Oximetry 98 % 03/02/2021 9:04am BP Systolic 130 mmHg BP Diastolic 80 mmHg Body Temperature 98.0 F Heart Rate 85 /min Respiratory Rate 18 /min Height 72 inches 6'0" Weight 201.00 lb [place] Body Weight 178 lb BMI (Body Mass Index) 27.3 kg/m2 O2 % BldC Oximetry 97 % Results Test Acquired Date Facility Test Result H/L Range Note Aerobic Bacterial Culture 03/02/2021 [facility] [place] Aerobic Bacterial Culture Final report 1 , 2 Result 1 See Comment: 3 Laboratory test finding 03/02/2021 [facility] Hemoglobin A1c 5.3 % 4.50-6.20 CBC 03/02/2021 [facility] WBC 4.1 10E3/uL 4.1 - 10.9 4 RBC 3.86 10E6/uL Low 4.20 - 6.30 [...] Gap 15 mmol/L eGFR 99 # Calc 5 eGFR Non-Afr. [place]ian 85 # Calc 6 Lipid Panel 03/02/2021 [facility] Chol 179 mg/dL 0 - 200 Trig 60 mg/dL 35 - 200 HDL 57 mg/dL High 35 - 55 LDL_C 110 Calc 75 - 129 Cho/HDL Ratio 3.1 CALC Laboratory test finding 03/02/2021 [facility] TSH 2.946 ulU/mL 0.60 - 4.8 1 SRC:RIGHT LEG INFECTION 2 Source of Specimen: RIGHT LE G INFECTION 3 Source of Specimen: RIGHT LE G INFECTION No growth in 36 - 48 hours. 4 NORMAL RANGES Age WBC RBC HGB HCT [...] HCT IS 5% LESS SOURCE FOR DATA: [employer] 1800 OPERATION MANUAL( AUTOMATED BLOOD COUNTS AND [...] ADOLESCENTS REPRESENTS INDIVIDUALA AGED 2-19 YEARS EXCLUSIVE. 5 CKD-EPI 6 CKD-EPI Procedures Date Code Description Status 03/02/2021 81765 Office/Outpatient Established Mo d MDM 30-39 Min Completed Medical Devices Description No Information Available Encounters Type Date Location Provider Dx Diagnosis Office Visit 03/02/2021 9:00a [place] [facility] Ismael Coley, LILI A I10 Essential (primary) hypertension J44.9 Chronic obstructive pulmonar y disease, unspecified F17.210 Nicotine dependence, cigaret uzma, uncomplicated L08.9 Local infection of the skin and subcutaneous tissue, [facility] R73.01 Impaired fasting glucose Assessments Date Code [...] RPA 03/02/2021 R73.01 Impaired fasting glucose Ismael Coley RPA Plan of Treatment Future Appointment(s):* 08/13/2021 11:00 am - Ismael Coley RPA at [facility] Functional Status Description No Information Available Mental Status Description No Information Available Referrals Description No Information Available
--- OUTSIDE RECORDS SUMMARY | 2021-08-11 09:29 | CCD | Continuity of Care Document ---
Author Author Tad GOOD Organization Unknown Address [address], [address] [place] [address] Phone [phone] Care Team Providers Care Metallurgical Analyst Name Role Phone Ismael Coley AUTM [phone] Derik Miguel D.O. AUTM [phone] Problems Active Problems Provider Date Essential hypertension DALTON Khanna Onset: 07/08/2021 Social History Type Date Description Comments Sex Unknown ETOH Use Currently consumes alcohol ETOH Use 1-2 A Day Tobacco Use Start: Unknown Patient is a current smoker, smo kes every day 1 ppd x55 years Recreational Drug Use Denies Drug Use Allergies, Adverse Reactions, Alerts Description No Known Drug Allergies Medications Active Medications SIG Qnty Indications Ordering Provide r Date Lisinopril 40mg Tablets Take One Tablet By Mouth Once Daily Unknown Super Cranberry/Vitamin D3 [id number] Capsules once daily Unknown Cod Liver Oil 1000mg Capsules once daily Unknown Lutein 20mg Capsules one cap daily Unknown Super B-Complex Capsules 1,000 mcg. daily Unknown Aspirin 81mg Tablets DR 1 crista ry day Unknown Garlic Oil 1000mg Capsules one cap daily Unknown Vitamin D3 1.25mg (92674 Ut) Capsu les 1 cap once daily Unknown Coulters 3 1000mg Capsules 1 tab by mouth every day Unknown Iron 325(65Fe) mg Tablets one tab daily Unknown Calcium Magnesium Zinc 333-133-5mg Tablets one tab daily Unknown Immunizations Description No Information Available Vital Signs Date Vital Result Comment 07/08/2021 9:39am BP Systolic 158 mmHg BP Diastolic 87 mmHg Body Temperature 98.4 F Height 72 inches 6'0" Weight 201.50 lb BMI (Body Mass Index) 27.3 kg/m2 [place] Body Weight 178 lb Weight 91.400 kg BSA (Body Surface Area) 2.14 m2 Results Description No Information Available Procedures Description No Information Available Medical Devices Description No Information Available Encounters Description No Information Available Assessments Description No Information Available Plan of Treatment No Information Available Functional Status Description No Information Available Mental Status Description No Information Available Referrals Refer to Reason for Referral Status Appt Date Anjel Short JR, MD COLONOSCOPY, BLOOD IN STOOL Scheduled 07/08/[address] [place] [address] [phone]
--- OUTSIDE RECORDS SUMMARY | 2021-08-11 09:29 | CCD | Continuity of Care Document ---
Author Author Tad COLEY [facility] Organization Unknown Address [address] [place] [address] Phone [phone] Care Team Providers Care Production Administrative Assistant Name Role Phone Atilio Oscar M.D. AUTM [phone] Problems Active Problems Provider Date Tobacco user [...] mouth every day 90tabs [facility]., [facility] L[facility] 10mg Tablets 1 p.o. qd OTC Unknown Medications Administered in Office Medication SIG Qnty Indications Ordering Provider Date Injection (SC)/(Im) Injection Gonsalo Holt . M.D 09/13/2011 Immunizations CPT Code Status Date Vaccine Lot # [id number] Given 08/12/2020 Influenza Virus Vaccine, Quadrivalent, Slit Virus, Im Use 3Y & Up [id number] 96964 Given 08/02/2019 Pneumococcal Immunization S0 [id number] 67774 Given 08/02/2019 Influenza Virus Vaccine, Quadrivalent, Slit Virus, Im Use 3Y & Up [id number] 14129 Given 08/01/2018 Influenza Virus Vaccine, Quadrivalent, Slit Virus, Im Use 3Y & Up [id number] 86711 Given 08/01/2016 Influenza Virus Vaccine, Quadrivalent, Slit Virus, Im Use 3Y & Up [id number] 50919 Given 07/17/2015 Influenza Vaccin e (Fluzone) 3Yrs Of Age Or Older Medicare Plans [id number] 15441 Given 07/29/2014 Influenza Vaccin e (Fluzone) 3Yrs Of Age Or Older Medicare Plans [id number] 41757 Given 07/29/2014 Pneumococcal Immunization K0 [id number] 54928 Given 09/13/2011 Influenza Virus Vac. Split Virus Individuals 3 Years And Above [id number] Vital Signs Date Vital Result Comment 06/08/2021 11:02am BP Systolic 128 mmHg BP Diastolic 72 mmHg Body Temperature 97.8 F Heart Rate 77 /min Respiratory Rate 18 /min Height 72 inches 6'0" Weight 203.00 lb [place] Body Weight 178 lb BMI (Body Mass Index) 27.5 kg/m2 O2 % BldC Oximetry 98 % 03/02/2021 9:04am BP Systolic 130 mmHg BP Diastolic 80 mmHg Body Temperature 98.0 F Heart Rate 85 /min Respiratory Rate 18 /min Height 72 inches 6'0" Weight 201.00 lb [place] Body Weight 178 lb BMI (Body Mass Index) 27.3 kg/m2 O2 % BldC Oximetry 97 % Results Test Acquired Date Facility Test Result H/L Range Note Aerobic Bacterial Culture 03/02/2021 [facility] [place] Aerobic Bacterial Culture Final report 1 , 2 Result 1 See Comment: 3 Laboratory test finding 03/02/2021 [facility] Hemoglobin A1c 5.3 % 4.50-6.20 CBC 03/02/2021 [...] eGFR 99 # Calc 5 eGFR Non-Afr. [place] 85 # Calc 6 Lipid Panel 03/02/2021 [...] HCT IS 5% LESS SOURCE FOR DATA: [employer] 1800 OPERATION MANUAL( AUTOMATED BLOOD COUNTS AND [...] 6 CKD-EPI Procedures Date Code Description Status 06/08/2021 79358 Office/Outpatient Established Mo d MDM 30-39 Min Completed 03/02/2021 17647 Office/Outpatient Established Mo d MDM 30-39 Min Completed Medical Devices Description No Information Available Encounters Type Date Location Provider Dx Diagnosis Office Visit 06/08/2021 11:00a [facility] Ismael Coley, RP A I10 Essential (primary) hypertension J44.9 Chronic obstructive pulmonar y disease, unspecified F17.210 Nicotine dependence, cigaret uzma, uncomplicated Office Visit 03/02/2021 9:00a [facility] Ismael Coley, RP A I10 Essential (primary) hypertension J44.9 Chronic obstructive pulmonar y disease, unspecified F17.210 Nicotine dependence, cigaret uzma, uncomplicated L08.9 [facility] R[facility].01 Impaired fasting glucose Assessments Date Code [...] Future Appointment(s):* 08/13/2021 11:00 am - Ismael Coley, CHINTAN at [facility] Functional Status Description No Information Available Mental Status Description No Information Available Referrals Description No Information Available
--- OUTSIDE RECORDS SUMMARY | 2021-08-11 09:29 | CCD | Continuity of Care Document ---
Author Author Tad GOOD Organization Unknown Address [address], [address] [place] [address] Phone [phone] Care Team Providers Care Strapper And Buffer Name Role Phone Ismael Coley AUTM [phone] Derik Miguel D.O. AUTM [phone] Problems Active Problems Provider Date Essential hypertension [...] Mouth Once Daily Unknown Super Cranberry/Vitamin D3 [id number] Capsules once daily Unknown Cod Liver Oil 1000mg Capsules once daily Unknown Lutein 20mg Capsules one cap daily Unknown Super B-Complex Capsules 1,000 mcg. daily Unknown Aspirin 81mg Tablets DR 1 crista ry day Unknown Garlic Oil 1000mg Capsules one cap daily Unknown Vitamin D3 1.25mg (98855 Ut) Capsu les 1 cap once daily Unknown [place] 3 1000mg Capsules 1 tab by mouth [...] lb BMI (Body Mass Index) 27.3 kg/m2 [place] Body Weight 178 lb Weight 91.400 kg BSA (Body Surface Area) 2.14 m2 Results Description No Information Available Procedures Date Code Description Status 07/08/2021 83659 Office/Outpatient New Moderate M DM 45-59 Minutes Completed Medical Devices Description No Information Available Encounters Type Date Location Provider Dx Diagnosis Office Visit 07/08/2021 9:45a [facility] DALTON Ordaz Z12.11 Encounter for screening for malignant ne oplasm of colon K62.5 Hemorrhage of anus and rectu m F17.200 Nicotine dependence, unspeci fied, uncomplicated Assessments Date Code Description Provider 07/08/2021 Z12.11 Encounter for screening for alexia gnant neoplasm of colon DALTON Khanna 07/08/2021 K62.5 Hemorrhage of anus and rectum DALTON Ordoñez 07/08/2021 F17.200 Nicotine dependence, unspecified , uncomplicated DALTON Khanna Plan of Treatment Future Appointment(s):* 08/25/2021 11:00 am - DALTON Khanna at [facility] * 08/11/2021 2:30 pm - Murali Harden DO at [facility] 07/08/2021 - DALTON Khanna* Z12.11 Encounter for screening for malignant neoplasm of colon * K62.5 Hemorrhage of anus and rectum * F17.200 Nicotine dependence, unspecified, uncomplicated Functional Status Description No Information Available Mental Status Description No Information Available Referrals Refer to Reason for Referral Status Appt Date Anjel Short JR, MD COLONOSCOPY, BLOOD IN STOOL Scheduled 07/08/[address] [address] [phone]
--- OUTSIDE RECORDS SUMMARY | 2021-08-11 09:30 | CCD ---
Author Author [facility] Organization [facility] Address Unknown Phone Unavailable Care Team Providers Care Leather Sponger Name Role Phone Brijesh D Ismael PA Unavailable Unavailable Brijesh, D Ismael PA Unavailable Unavailable Brijesh, D Ismael PA Unavailable Unavailable Brijesh, D Ismael PA Unavailable Unavailable Brijesh, D Ismael PA Unavailable Unavailable Brijesh, D Ismael PA Unavailable Unavailable Brijesh, D Ismael PA Unavailable Unavailable Brijesh, D Ismael PA Unavailable Unavailable Brijesh, D Ismael PA Unavailable Unavailable Brijesh, D Ismael PA Unavailable Unavailable Brijesh, D Ismael PA Unavailable Unavailable Brijesh, D Ismael PA Unavailable Unavailable Brijesh, D Ismael PA Unavailable Unavailable Brijesh, D Ismael PA Unavailable Unavailable Brijesh, D Ismael PA Unavailable Unavailable Brijesh, D Ismael PA Unavailable Unavailable Brijesh, D Ismael PA Unavailable Unavailable Brijesh, D Ismael PA Unavailable Unavailable Brijesh, D Ismael PA Unavailable Unavailable Brijesh, D Ismael PA Unavailable Unavailable Brijesh, D Ismael PA Unavailable Unavailable Brijesh, D Ismael PA Unavailable Unavailable Brijesh, D Ismael PA Unavailable Unavailable Brijesh, D Ismael PA Unavailable Unavailable Brijesh, D Ismael PA Unavailable Unavailable Brijesh, D Ismael PA Unavailable Unavailable Brijesh, D Ismael PA Unavailable Unavailable Brijesh, D Ismael PA Unavailable Unavailable Brijesh, D Ismael PA Unavailable Unavailable Brijesh, D Ismael PA Unavailable Unavailable Brijesh, D Ismael PA Unavailable Unavailable Brijesh, D Ismael PA Unavailable Unavailable Brijesh, D Ismael PA Unavailable Unavailable Brijesh, D Ismael PA Unavailable Unavailable Brijesh, D Ismael PA Unavailable Unavailable Brijesh, D Ismael PA Unavailable Unavailable Brijesh, D Ismael PA Unavailable Unavailable Brijesh, D Ismael PA Unavailable Unavailable Brijesh, D Ismael PA Unavailable Unavailable Brijesh, D Ismael PA Unavailable Unavailable Brijesh, D Ismael PA Unavailable Unavailable Brijesh, D Ismael PA Unavailable Unavailable Brijesh, D Ismael PA Unavailable Unavailable Brijesh, D Ismael PA Unavailable Unavailable Brijesh, D Ismael PA Unavailable Unavailable Brijesh, D Isamel PA Unavailable Unavailable Brijesh, D Ismael PA Unavailable Unavailable Brijesh, D Ismael PA Unavailable Unavailable Brijesh, D Ismael PA Unavailable Unavailable Brijesh, D Ismael PA Unavailable Unavailable Brijesh, D Ismael PA Unavailable Unavailable Brijesh, D Ismael PA Unavailable Unavailable Brijesh, D Ismael PA Unavailable Unavailable Brijesh, D Ismael PA Unavailable Unavailable Brijesh, D Ismael PA Unavailable Unavailable Brijesh, D Ismael PA Unavailable Unavailable Brijesh, D Ismael PA Unavailable Unavailable Brijesh, D Ismael PA Unavailable Unavailable Brijesh, D Ismael PA Unavailable Unavailable Brijesh, D Ismael PA Unavailable Unavailable Brijesh, D Ismael PA Unavailable Unavailable Brijesh, D Ismael PA Unavailable Unavailable Brijesh, D Ismael PA Unavailable Unavailable Brijesh, D Ismael PA Unavailable Unavailable Brijesh, D Ismael PA Unavailable Unavailable Brijesh, D Ismael PA Unavailable Unavailable Brijesh, D Ismael PA Unavailable Unavailable Morfin, L Bebe RPA Unavailable Unavailable Morfin, L Bebe RPA Unavailable Unavailable Morfin, L Bebe RPA Unavailable Unavailable Morfin, L Bebe RPA Unavailable Unavailable Morfin, L Bebe RPA Unavailable Unavailable Morfin, L Bebe RPA Unavailable Unavailable Morfin, L Bebe RPA Unavailable Unavailable Morfin, L Bebe RPA Unavailable Unavailable Morfin, L Bebe RPA Unavailable Unavailable Morfin, L Bebe RPA Unavailable Unavailable Morfin, L Bebe RPA Unavailable Unavailable Morfin, L Bebe RPA Unavailable Unavailable Morfin, L Bebe RPA Unavailable Unavailable Morfin, L Bebe RPA Unavailable Unavailable Morfin, L Bebe RPA Unavailable Unavailable Morfin, L Bebe RPA Unavailable Unavailable Morfin, L Bebe RPA Unavailable Unavailable Morfin, L Bebe RPA Unavailable Unavailable Morfin, L Bebe RPA Unavailable Unavailable Morfin, L Bebe RPA Unavailable Unavailable Morfin, L Bebe RPA Unavailable Unavailable Morfin, L Bebe RPA Unavailable Unavailable Morfin, L Bebe RPA Unavailable Unavailable Morfin, L Bebe RPA Unavailable Unavailable Morfin, L Bebe RPA Unavailable Unavailable Morfin, L Bebe RPA Unavailable Unavailable Morfin, L Bebe RPA Unavailable Unavailable Morfin, L Bebe RPA Unavailable Unavailable Morfin, L Bebe RPA Unavailable Unavailable Morfin, L Bebe RPA Unavailable Unavailable Morfin, L Bebe RPA Unavailable Unavailable Morfin, L Bebe RPA Unavailable Unavailable DEANA, A DUNG DO Unavailable Unavailable DEANA, A DUNG DO Unavailable Unavailable DEANA, A DUNG DO Unavailable Unavailable DEANA, A DUNG DO Unavailable Unavailable DEANA, A DUNG DO Unavailable Unavailable DEANA, A DUNG DO Unavailable Unavailable DEANA, A DUNG DO Unavailable Unavailable DEANA, A DUNG DO Unavailable Unavailable DEANA, A DUNG DO Unavailable Unavailable DEANA, A DUNG DO Unavailable Unavailable DEANA, A DUNG DO Unavailable Unavailable DEANA, A DUNG DO Unavailable Unavailable DEANA, A DUNG DO Unavailable Unavailable DEANA, A DUNG DO Unavailable Unavailable DEANA, A DUNG DO Unavailable Unavailable DEANA, A DUNG DO Unavailable Unavailable DEANA, A DUNG DO Unavailable Unavailable DEANA, A DUNG DO Unavailable Unavailable DEANA, A DUNG DO Unavailable Unavailable DEANA, A DUNG DO Unavailable Unavailable DEANA, A DUNG DO Unavailable Unavailable DEANA, A DUNG DO Unavailable Unavailable Re-disclosure Warning The records that you are about to access may contain information from federally-assisted alcohol or drug abuse programs. If such information is present, then the following federally mandated warning applies: This information has been disclosed to you from records protected by federal confidentiality rules (42 CFR part 2). The federal rules prohibit you from making any further disclosure of this information unless further disclosure is expressly permitted by the written consent of the person to whom it pertains or as otherwise permitted by 42 CFR part 2. A general authorization for the release of medical or other information is NOT sufficient for this purpose. The Federal rules restrict any use of the information to criminally investigate or prosecute any alcohol or drug abuse patient.The records that you are about to access may contain highly sensitive health information, the redisclosure of which is protected by Article 27-F of the [facility] Public Health law. If you continue you may have access to information: Regarding HIV / AIDS; Provided by facilities licensed or operated by the [facility] Office of Mental Health; or Provided by the [facility] Office for People With Developmental Disabilities. If such information is present, then the following [facility] mandated warning applies: This information has been disclosed to you from confidential records which are protected by state law. State law prohibits you from making any further disclosure of this information without the specific written consent of the person to whom it pertains, or as otherwise permitted by law. Any unauthorized further disclosure in violation of state law may result in a fine or shelter sentence or both. A general authorization for the release of medical or other information is NOT sufficient authorization for further disc losure. Allergies and Adverse Reactions Type Description Substance Reaction Status Data Source(s ) Allergy to substance No Known Allergies No known allergies (situation ) LES[facility] (Ofelia Rizzo MD [facility]) Encounters Encounter Providers Location Date Indications Data Source(s ) Outpatient Attender: Bebe Cardenas/[place]/Brayden hector 07/08/2021 09:45:00 AM EDT [facility] ([facility] Outpatient Attender: Ismael HOFFMAN [place] [facility] 11:00:00 AM EDT [facility] ([facility] Outpatient Attender: Ismael HOFFMAN [place] [facility] 09:00:00 AM EDT [facility] ([facility] Outpatient Attender: Ismael HOFFMAN [place] [facility] 01:30:00 PM EDT [facility] ([facility] Outpatient<td ID="encounterTypeDescripti onID0">1 Year Follow-Up</td><td>Dung Doshi DO</td><td>Ofelia Simpson MD [facility]</td><td>07/23/2020</td><td>2:14PM</td><td>3:26PM</td><td><content ID="encounterDiagnosisID0-0">Pseudophakia</content>, <content ID="encounterDiagnosisID0-1">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</content>, <content ID="encounterDiagnosisID0-2">Dry Eye Syndrome</content>, <content ID="encounterDiagnosisID0-3">Vitreous Disorders Degeneration</content>, <content ID="encounterDiagnosisID0-4"> Drusen</content></td> Attender: DUNG Brewster MD [facility] 07/23/2020 02:14:00 PM EDT - 07/23/2020 03:26:00 PM EDT Drusen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PseudophakiaVitreous Disorders DegenerationDry Eye Syndrome LESLY (Ofelia Rizzo MD [facility]) Drusen Posterior Capsule Opacification Eccentri c Capsule Both Eyes Pseudophakia Vitreous Disorders Degeneration Dry Eye Syndrome Outpatient Attender: Ismael HOFFMAN [place] [facility] 10/2019 01:15:00 PM EDT [facility] ([facility] Immunizations Vaccine Date Status Description Data Source(s) New in 2012. IIV4 08/12/2020 01:47:00 PM EDT completed [facility] ([facility] Medications Medication Brand Name Start Date Product Form Dose Route Admi nistrative Instructions Pharmacy Instructions Status Indications Reaction Description Data Source(s) Moderna Covid-19 Vaccine Moderna Covid-19 Vaccine 06/08/2021 12:00: 00 AM EDT active [facility] ([facility] Levofloxacin 500 MG Oral Tablet Levofloxacin 03/02/2021 12:00:00 AM E DT ORAL active [facility] ([facility] 40 mg 03/02/2021 12:00:00 AM EDT tablet 90 TAKE ONE TABLET BY MOUTH ONCE DAILY TAKE ONE TABLET BY MOUTH ONCE DAILY SOLD: 06/04/2021 [facility] 500 mg 03/02/2021 12:00:00 AM EDT tablet 14 TAKE ONE TABLET BY MOUTH EVERY DAY TAKE ONE TABLET BY MOUTH EVERY DAY SOLD: 03/02/2021 [facility] 500 mg 03/02/2021 12:00:00 AM EDT tablet 14 TAKE ONE TABLET BY MOUTH EVERY DAY TAKE ONE TABLET BY MOUTH EVERY DAY SOLD: 06/04/2021 [facility] 40 mg 03/02/2021 12:00:00 AM EDT tablet 90 TAKE ONE TABLET BY MOUTH ONCE DAILY TAKE ONE TABLET BY MOUTH ONCE DAILY SOLD: 03/02/2021 [facility] 40 mg 08/13/2020 12:00:00 AM EDT tablet 90 TAKE ONE TABLET BY MOUTH EVERY DAY TAKE ONE TABLET BY MOUTH EVERY DAY SOLD: 08/15/2020 [facility] 500 mg 07/04/2020 12:00:00 AM EDT tablet 10 TAKE ONE TABLET BY MOUTH EVERY 12 HOURS FOR 5 DAYS TAKE ONE TABLET BY MOUTH EVERY 12 HOURS FOR 5 DAYS TAWANA [facility] 60 ACTUAT Albuterol 0.09 MG/ACTUAT Metered Dose Inhaler Albu terol Sulfate HFA 06/16/2020 12:00:00 AM EDT RESPIRATORY active [facility] ([facility] Insurance Providers Payer name Policy type / Coverage type Policy ID Covered republican ID Covered republican's relationship to hamlin Policy [place] Plan Information MEDICARE [id number] SP [id number] MEDICARE BLUE PPO [id number] SP [id number] MEDICARE [id number] SP [id number] A [facility] OPTIONS [id number] SP [id number] [facility] OPTIONS [id number] SP [id number] [facility] OPTIONS [id number] SP [id number] MEDICARE BLUE PPO [id number] SP [id number] MEDICARE BLUE O 306 [id number] SP [id number] MEDICARE [id number] SP [id number] A Medicare Part B [facility] Other 0 [id number] Self 0 [employer] [id number] S [id number] MEDICARE - [place] [id number] S [id number] [facility] OPTIONS [id number] SP [id number] [facility] OPTIONS [id number] S [id number] Problems, Conditions, and Diagnoses Code Display Name Description Problem Type Effective Dates Data Source(s) [id number] Essential hypertension Essential hypertension Problem 07/08/2021 12:00:00 AM EDT [facility] ([facility]) 362.57 Drusen Drusen Problem 07/23/2020 12:00:00 AM ED T LES[facility] (Ofelia Rizzo MD [facility]) [id number] Posterior Capsule Opacification Eccentri c Capsule Both Eyes 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 Problem 05/2020 12:00:00 AM EDT LES[facility] (Ofelia Rizzo MD [facility]) 366.16 Cataract Senile Nuclear Cataract Senile Nuclear Proble m 05/18/2017 12:00:00 AM EDT - 07/23/2020 12:00:00 AM EDT LESLY (Ofelia Rizzo MD [facility]) Surgeries/Procedures Procedure Description Date Indications Data Source(s) OFFICE OUTPATIENT NEW 45 MINUTES 07/08/2021 12:00:00 A M EDT [facility] ([facility]) OFFICE OUTPATIENT VISIT 25 MINUTES 06/08/2021 12:00:00 AM EDT [facility] ([facility] OFFICE OUTPATIENT VISIT 25 MINUTES 03/02/2021 12:00:00 AM EDT [facility] ([facility] Cataract surgery (procedure) History of cataract surge ry PCIOL OD 08/10/[address] Doshi ~PCIOL OS 07/06/[address] Doshi 07/23/2020 12:00:00 AM EDT LES[facility] (Ofelia Rizzo MD [facility]) Surgical / procedural history Prostate Cancer 2017. Had 44 Radiation Treatments Surgical / procedural history Prostate Cancer 2017. Had 44 Radiation Treatments 07/23/2020 12:00:00 AM EDT LESLY (Sarthak id Daniel Rizzo MD [facility]) Intermediate Eye Exam Established Patient Intermediate Eye Exam Established Patient 07/23/2020 12:00:00 AM EDT LESLY (Sarthak id Daniel Rizzo MD [facility]) Results ID Date Data Source [id number] 08/06/2021 10:45:00 AM EDT [facility] ([facility] Name Value Range Interpretation Code Description Data Tammy rce(s) Supporting Document(s) Laboratory test finding (navigational concept) Laboratory test result [facility] ([facility] ASSAY INFORMATION: Real Time RT-PCR NOTE: The COVID-19 assay has been cleared by the U.S. Food and Drug Administration under the Emergency Use Authorization (EUA). [facility] and [employer] [facility] are designated as high complexity laboratories by the Clinical Laboratory Improvement Amendments of 1988(CLIA) and are qualified to perform this test. Not Detected ID Date Data Source [id number] 03/02/2021 09:29:00 AM EDT [facility] ([facility] Name Value Range Interpretation Code Description Data Tammy rce(s) Supporting Document(s) Bacteria identified in Unspecified specimen by [facility] culture Laboratory test result [facility] ([facility] SRC:RIGHT LEG INFECTION Bacteria identified in Unspecified specimen by Culture Laborator y test result [facility] ([facility] ) SRC:RIGHT LEG INFECTION ID Date Data Source [id number] 03/02/2021 09:29:00 AM EDT [facility] ([facility] Name Value Range Interpretation Code Description Data Tammy rce(s) Supporting Document(s) Bacteria identified in Unspecified specimen by [employer] culture Laboratory test result [facility] ([facility] ID Date Data Source [id number] 03/02/2021 09:28:00 AM EDT [facility] ([facility] Name Value Range Interpretation Code Description Data Tammy rce(s) Supporting Document(s) Cholesterol in HDL [Mass/volume] in Serum or Plasma 57 mg/dL 35-55 Above high normal [facility] ([facility] ) NORMAL RANGES Age WBC RBC HGB HCT [...] HCT IS 5% LESS SOURCE FOR DATA: [employer] 1800 OPERATION MANUAL( AUTOMATED BLOOD COUNTS AND [...] DESIRABLE: <130 MG/DL <110 MG/DL BORDERLINE-HIGH RISK: 130- 159 MG/DL 110-129 MG/DL HIGH RISK: >160 MG/DL >130 MG/DL *CHILDREN AND ADOLESCENTS REPRESENTS INDIVIDUALA AGED 2-19 YEARS EXCLUSIVE. Trig 60 mg/dL 35-200 [facility] NORMAL RANGES Age WBC RBC HGB HCT [...] HCT IS 5% LESS SOURCE FOR DATA: [employer] 1800 OPERATION MANUAL( AUTOMATED BLOOD COUNTS AND [...] DESIRABLE: <130 MG/DL <110 MG/DL BORDERLINE-HIGH RISK: 130- 159 MG/DL 110-129 MG/DL HIGH RISK: >160 MG/DL >130 MG/DL *CHILDREN AND ADOLESCENTS REPRESENTS INDIVIDUALA AGED 2-19 YEARS EXCLUSIVE. Chol 179 mg/dL 0-200 [facility] NORMAL RANGES Age WBC RBC HGB HCT [...] HCT IS 5% LESS SOURCE FOR DATA: [employer] DYN 1800 OPERATION MANUAL( AUTOMATED BLOOD COUNTS AND [...] DESIRABLE: <130 MG/DL <110 MG/DL BORDERLINE-HIGH RISK: 130- 159 MG/DL 110-129 MG/DL HIGH RISK: >160 MG/DL >130 MG/DL *CHILDREN AND ADOLESCENTS REPRESENTS INDIVIDUALA AGED 2-19 YEARS EXCLUSIVE. LDL_C 110 Calc 75-129 [facility] ([facility] NORMAL RANGES Age WBC RBC HGB HCT [...] HCT IS 5% LESS SOURCE FOR DATA: [employer]x 1800 OPERATION MANUAL( AUTOMATED BLOOD COUNTS AND [...] DESIRABLE: <130 MG/DL <110 MG/DL BORDERLINE-HIGH RISK: 130- 159 MG/DL 110-129 MG/DL HIGH RISK: >160 MG/DL >130 MG/DL *CHILDREN AND ADOLESCENTS REPRESENTS INDIVIDUALA AGED 2-19 YEARS EXCLUSIVE. Cho/HDL Ratio 3.1 CALC [facility] ([facility] NORMAL RANGES Age WBC RBC HGB HCT [...] HCT IS 5% LESS SOURCE FOR DATA: [employer]x 1800 OPERATION MANUAL( AUTOMATED BLOOD COUNTS AND [...] DESIRABLE: <130 MG/DL <110 MG/DL BORDERLINE-HIGH RISK: 130- 159 MG/DL 110-129 MG/DL HIGH RISK: >160 MG/DL >130 MG/DL *CHILDREN AND ADOLESCENTS REPRESENTS INDIVIDUALA AGED 2-19 YEARS EXCLUSIVE. ID Date Data Source [id number] 03/02/2021 09:28:00 AM ADRIANA TADEO ([facility] Name Value Range Interpretation Code Description Data Tammy rce(s) Supporting Document(s) Glu 110 mg/dL 70-110 [facility] ([facility] NORMAL RANGES Age WBC RBC HGB HCT [...] HCT IS 5% LESS SOURCE FOR DATA: Hyginex 1800 OPERATION MANUAL( AUTOMATED BLOOD COUNTS AND [...] DESIRABLE: <130 MG/DL <110 MG/DL BORDERLINE-HIGH RISK: 130- 159 MG/DL 110-129 MG/DL HIGH RISK: >160 MG/DL >130 MG/DL *CHILDREN AND ADOLESCENTS REPRESENTS INDIVIDUALA AGED 2-19 YEARS EXCLUSIVE. Creat 0.9 mg/dL 0.7-1.2 [facility] ([facility] NORMAL RANGES Age WBC RBC HGB HCT [...] HCT IS 5% LESS SOURCE FOR DATA: Hyginex 1800 OPERATION MANUAL( AUTOMATED BLOOD COUNTS AND [...] DESIRABLE: <130 MG/DL <110 MG/DL BORDERLINE-HIGH RISK: 130- 159 MG/DL 110-129 MG/DL HIGH RISK: >160 MG/DL >130 MG/DL *CHILDREN AND ADOLESCENTS REPRESENTS INDIVIDUALA AGED 2-19 YEARS EXCLUSIVE. BUN 14 mg/dL 8-23 [facility] NORMAL RANGES Age WBC RBC HGB HCT [...] HCT IS 5% LESS SOURCE FOR DATA: Hyginex 1800 OPERATION MANUAL( AUTOMATED BLOOD COUNTS AND [...] DESIRABLE: <130 MG/DL <110 MG/DL BORDERLINE-HIGH RISK: 130- 159 MG/DL 110-129 MG/DL HIGH RISK: >160 MG/DL >130 MG/DL *CHILDREN AND ADOLESCENTS REPRESENTS INDIVIDUALA AGED 2-19 YEARS EXCLUSIVE. K 4.9 mmol/L 3.5-5.1 [facility] ([facility] NORMAL RANGES Age WBC RBC HGB HCT [...] HCT IS 5% LESS SOURCE FOR DATA: Hyginex 1800 OPERATION MANUAL( AUTOMATED BLOOD COUNTS AND [...] DESIRABLE: <130 MG/DL <110 MG/DL BORDERLINE-HIGH RISK: 130- 159 MG/DL 110-129 MG/DL HIGH RISK: >160 MG/DL >130 MG/DL *CHILDREN AND ADOLESCENTS REPRESENTS INDIVIDUALA AGED 2-19 YEARS EXCLUSIVE. BUN/Creatinine Ratio 16.6 CALC [facility] ([facility] NORMAL RANGES Age WBC RBC HGB HCT [...] HCT IS 5% LESS SOURCE FOR DATA: Hyginex 1800 OPERATION MANUAL( AUTOMATED BLOOD COUNTS AND [...] DESIRABLE: <130 MG/DL <110 MG/DL BORDERLINE-HIGH RISK: 130- 159 MG/DL 110-129 MG/DL HIGH RISK: >160 MG/DL >130 MG/DL *CHILDREN AND ADOLESCENTS REPRESENTS INDIVIDUALA AGED 2-19 YEARS EXCLUSIVE. Na 138 mmol/L 136-145 [facility] NORMAL RANGES Age WBC RBC HGB HCT [...] HCT IS 5% LESS SOURCE FOR DATA: Hyginex 1800 OPERATION MANUAL( AUTOMATED BLOOD COUNTS AND [...] DESIRABLE: <130 MG/DL <110 MG/DL BORDERLINE-HIGH RISK: 130- 159 MG/DL 110-129 MG/DL HIGH RISK: >160 MG/DL >130 MG/DL *CHILDREN AND ADOLESCENTS REPRESENTS INDIVIDUALA AGED 2-19 YEARS EXCLUSIVE. CL 105.4 mmol/L 98.0-107.0 [facility] ([facility] NORMAL RANGES Age WBC RBC HGB HCT [...] HCT IS 5% LESS SOURCE FOR DATA: Hyginex 1800 OPERATION MANUAL( AUTOMATED BLOOD COUNTS AND [...] DESIRABLE: <130 MG/DL <110 MG/DL BORDERLINE-HIGH RISK: 130- 159 MG/DL 110-129 MG/DL HIGH RISK: >160 MG/DL >130 MG/DL *CHILDREN AND ADOLESCENTS REPRESENTS INDIVIDUALA AGED 2-19 YEARS EXCLUSIVE. Co2 22.5 mmol/L 22.0-29.0 [facility] ([facility] NORMAL RANGES Age WBC RBC HGB HCT [...] HCT IS 5% LESS SOURCE FOR DATA: Hyginex 1800 OPERATION MANUAL( AUTOMATED BLOOD COUNTS AND [...] DESIRABLE: <130 MG/DL <110 MG/DL BORDERLINE-HIGH RISK: 130- 159 MG/DL 110-129 MG/DL HIGH RISK: >160 MG/DL >130 MG/DL *CHILDREN AND ADOLESCENTS REPRESENTS INDIVIDUALA AGED 2-19 YEARS EXCLUSIVE. TP 6.3 g/dL 6.6-8.7 Below low normal [facility] ( [facility] NORMAL RANGES Age WBC RBC HGB HCT [...] HCT IS 5% LESS SOURCE FOR DATA: [place]OR[facility] DYN 1800 OPERATION MANUAL( AUTOMATED BLOOD COUNTS AND [...] DESIRABLE: <130 MG/DL <110 MG/DL BORDERLINE-HIGH RISK: 130- 159 MG/DL 110-129 MG/DL HIGH RISK: >160 MG/DL >130 MG/DL *CHILDREN AND ADOLESCENTS REPRESENTS INDIVIDUALA AGED 2-19 YEARS EXCLUSIVE. Alb 4.2 g/dL 3.5-5.2 [facility] ([facility] NORMAL RANGES Age WBC RBC HGB HCT [...] HCT IS 5% LESS SOURCE FOR DATA: Hyginex 1800 OPERATION MANUAL( AUTOMATED BLOOD COUNTS AND [...] DESIRABLE: <130 MG/DL <110 MG/DL BORDERLINE-HIGH RISK: 130- 159 MG/DL 110-129 MG/DL HIGH RISK: >160 MG/DL >130 MG/DL *CHILDREN AND ADOLESCENTS REPRESENTS INDIVIDUALA AGED 2-19 YEARS EXCLUSIVE. CA 9.3 mg/dL 8.6-10.2 [facility] ([facility] NORMAL RANGES Age WBC RBC HGB HCT [...] HCT IS 5% LESS SOURCE FOR DATA: [employer]ginex 1800 OPERATION MANUAL( AUTOMATED BLOOD COUNTS AND [...] DESIRABLE: <130 MG/DL <110 MG/DL BORDERLINE-HIGH RISK: 130- 159 MG/DL 110-129 MG/DL HIGH RISK: >160 MG/DL >130 MG/DL *CHILDREN AND ADOLESCENTS REPRESENTS INDIVIDUALA AGED 2-19 YEARS EXCLUSIVE. Globulin 2.2 CALC [facility] ([facility] NORMAL RANGES Age WBC RBC HGB HCT [...] HCT IS 5% LESS SOURCE FOR DATA: Hyginex 1800 OPERATION MANUAL( AUTOMATED BLOOD COUNTS AND [...] DESIRABLE: <130 MG/DL <110 MG/DL BORDERLINE-HIGH RISK: 130- 159 MG/DL 110-129 MG/DL HIGH RISK: >160 MG/DL >130 MG/DL *CHILDREN AND ADOLESCENTS REPRESENTS INDIVIDUALA AGED 2-19 YEARS EXCLUSIVE. A/G Ratio 1.9 CALC [facility] ([facility] NORMAL RANGES Age WBC RBC HGB HCT [...] HCT IS 5% LESS SOURCE FOR DATA: Hyginex 1800 OPERATION MANUAL( AUTOMATED BLOOD COUNTS AND [...] DESIRABLE: <130 MG/DL <110 MG/DL BORDERLINE-HIGH RISK: 130- 159 MG/DL 110-129 MG/DL HIGH RISK: >160 MG/DL >130 MG/DL *CHILDREN AND ADOLESCENTS REPRESENTS INDIVIDUALA AGED 2-19 YEARS EXCLUSIVE. Alp 81.5 U/L 40-129 [facility] ([facility] NORMAL RANGES Age WBC RBC HGB HCT [...] HCT IS 5% LESS SOURCE FOR DATA: [employer]x 1800 OPERATION MANUAL( AUTOMATED BLOOD COUNTS AND [...] DESIRABLE: <130 MG/DL <110 MG/DL BORDERLINE-HIGH RISK: 130- 159 MG/DL 110-129 MG/DL HIGH RISK: >160 MG/DL >130 MG/DL *CHILDREN AND ADOLESCENTS REPRESENTS INDIVIDUALA AGED 2-19 YEARS EXCLUSIVE. Ast (Sgot) 14 U/L 0-40 [facility] NORMAL RANGES Age WBC RBC HGB HCT [...] HCT IS 5% LESS SOURCE FOR DATA: [employer] DYN 1800 OPERATION MANUAL( AUTOMATED BLOOD COUNTS AND [...] DESIRABLE: <130 MG/DL <110 MG/DL BORDERLINE-HIGH RISK: 130- 159 MG/DL 110-129 MG/DL HIGH RISK: >160 MG/DL >130 MG/DL *CHILDREN AND ADOLESCENTS REPRESENTS INDIVIDUALA AGED 2-19 YEARS EXCLUSIVE. Alt (SGPT) 16 U/L 0-41 [facility] ([facility] NORMAL RANGES Age WBC RBC HGB HCT [...] HCT IS 5% LESS SOURCE FOR DATA: Hyginex 1800 OPERATION MANUAL( AUTOMATED BLOOD COUNTS AND [...] DESIRABLE: <130 MG/DL <110 MG/DL BORDERLINE-HIGH RISK: 130- 159 MG/DL 110-129 MG/DL HIGH RISK: >160 MG/DL >130 MG/DL *CHILDREN AND ADOLESCENTS REPRESENTS INDIVIDUALA AGED 2-19 YEARS EXCLUSIVE. Tbili 0.42 mg/dL 0.0-1.2 [facility] ([facility] NORMAL RANGES Age WBC RBC HGB HCT [...] HCT IS 5% LESS SOURCE FOR DATA: Hyginex 1800 OPERATION MANUAL( AUTOMATED BLOOD COUNTS AND [...] DESIRABLE: <130 MG/DL <110 MG/DL BORDERLINE-HIGH RISK: 130- 159 MG/DL 110-129 MG/DL HIGH RISK: >160 MG/DL >130 MG/DL *CHILDREN AND ADOLESCENTS REPRESENTS INDIVIDUALA AGED 2-19 YEARS EXCLUSIVE. Osmolality-Calculated 277.1 [facility] ([facility] NORMAL RANGES Age WBC RBC HGB HCT [...] HCT IS 5% LESS SOURCE FOR DATA: [employer] DYN 1800 OPERATION MANUAL( AUTOMATED BLOOD COUNTS AND [...] DESIRABLE: <130 MG/DL <110 MG/DL BORDERLINE-HIGH RISK: 130- 159 MG/DL 110-129 MG/DL HIGH RISK: >160 MG/DL >130 MG/DL *CHILDREN AND ADOLESCENTS REPRESENTS INDIVIDUALA AGED 2-19 YEARS EXCLUSIVE. Anion Gap 15 mmol/L [facility] NORMAL RANGES Age WBC RBC HGB HCT [...] HCT IS 5% LESS SOURCE FOR DATA: Hyginex 1800 OPERATION MANUAL( AUTOMATED BLOOD COUNTS AND [...] DESIRABLE: <130 MG/DL <110 MG/DL BORDERLINE-HIGH RISK: 130- 159 MG/DL 110-129 MG/DL HIGH RISK: >160 MG/DL >130 MG/DL *CHILDREN AND ADOLESCENTS REPRESENTS INDIVIDUALA AGED 2-19 YEARS EXCLUSIVE. eGFR Non-Afr. [place] 85 # [facility] ([facility] NORMAL RANGES Age WBC RBC HGB HCT [...] HCT IS 5% LESS SOURCE FOR DATA: Hyginex 1800 OPERATION MANUAL( AUTOMATED BLOOD COUNTS AND [...] DESIRABLE: <130 MG/DL <110 MG/DL BORDERLINE-HIGH RISK: 130- 159 MG/DL 110-129 MG/DL HIGH RISK: >160 MG/DL >130 MG/DL *CHILDREN AND ADOLESCENTS REPRESENTS INDIVIDUALA AGED 2-19 YEARS EXCLUSIVE. eGFR 99 # [facility] ( [facility] NORMAL RANGES Age WBC RBC HGB HCT [...] HCT IS 5% LESS SOURCE FOR DATA: Hyginex 1800 OPERATION MANUAL( AUTOMATED BLOOD COUNTS AND [...] DESIRABLE: <130 MG/DL <110 MG/DL BORDERLINE-HIGH RISK: 130- 159 MG/DL 110-129 MG/DL HIGH RISK: >160 MG/DL >130 MG/DL *CHILDREN AND ADOLESCENTS REPRESENTS INDIVIDUALA AGED 2-19 YEARS EXCLUSIVE. ID Date Data Source [id number] 03/02/2021 09:28:00 AM EDT [facility] ([facility] Name Value Range Interpretation Code Description Data Tammy rce(s) Supporting Document(s) HGB 12.4 g/dL 12.0-18.0 [facility] ([facility] NORMAL RANGES Age WBC RBC HGB HCT [...] HCT IS 5% LESS SOURCE FOR DATA: Hyginex 1800 OPERATION MANUAL( AUTOMATED BLOOD COUNTS AND [...] DESIRABLE: <130 MG/DL <110 MG/DL BORDERLINE-HIGH RISK: 130- 159 MG/DL 110-129 MG/DL HIGH RISK: >160 MG/DL >130 MG/DL *CHILDREN AND ADOLESCENTS REPRESENTS INDIVIDUALA AGED 2-19 YEARS EXCLUSIVE. RBC 3.86 10E6/uL 4.20-6.30 Below low normal [facility] ([facility] NORMAL RANGES Age WBC RBC HGB HCT [...] HCT IS 5% LESS SOURCE FOR DATA: [place]ORENCE DYN 1800 OPERATION MANUAL( AUTOMATED BLOOD COUNTS AND [...] DESIRABLE: <130 MG/DL <110 MG/DL BORDERLINE-HIGH RISK: 130- 159 MG/DL 110-129 MG/DL HIGH RISK: >160 MG/DL >130 MG/DL *CHILDREN AND ADOLESCENTS REPRESENTS INDIVIDUALA AGED 2-19 YEARS EXCLUSIVE. WBC 4.1 10E3/uL 4.1-10.9 [facility] ([facility] NORMAL RANGES Age WBC RBC HGB HCT [...] HCT IS 5% LESS SOURCE FOR DATA: Hyginex 1800 OPERATION MANUAL( AUTOMATED BLOOD COUNTS AND [...] DESIRABLE: <130 MG/DL <110 MG/DL BORDERLINE-HIGH RISK: 130- 159 MG/DL 110-129 MG/DL HIGH RISK: >160 MG/DL >130 MG/DL *CHILDREN AND ADOLESCENTS REPRESENTS INDIVIDUALA AGED 2-19 YEARS EXCLUSIVE. MCV 96.6 fL 80.0-97.0 [facility] ([facility] NORMAL RANGES Age WBC RBC HGB HCT [...] HCT IS 5% LESS SOURCE FOR DATA: Hyginex 1800 OPERATION MANUAL( AUTOMATED BLOOD COUNTS AND [...] DESIRABLE: <130 MG/DL <110 MG/DL BORDERLINE-HIGH RISK: 130- 159 MG/DL 110-129 MG/DL HIGH RISK: >160 MG/DL >130 MG/DL *CHILDREN AND ADOLESCENTS REPRESENTS INDIVIDUALA AGED 2-19 YEARS EXCLUSIVE. HCT 37.3 % 37.0-51.0 [facility] ([facility] NORMAL RANGES Age WBC RBC HGB HCT [...] HCT IS 5% LESS SOURCE FOR DATA: [employer] DYN 1800 OPERATION MANUAL( AUTOMATED BLOOD COUNTS AND [...] DESIRABLE: <130 MG/DL <110 MG/DL BORDERLINE-HIGH RISK: 130- 159 MG/DL 110-129 MG/DL HIGH RISK: >160 MG/DL >130 MG/DL *CHILDREN AND ADOLESCENTS REPRESENTS INDIVIDUALA AGED 2-19 YEARS EXCLUSIVE. MCHC 33.2 g/dL 31.0-36.0 [facility] ([facility] NORMAL RANGES Age WBC RBC HGB HCT [...] HCT IS 5% LESS SOURCE FOR DATA: Hyginex 1800 OPERATION MANUAL( AUTOMATED BLOOD COUNTS AND [...] DESIRABLE: <130 MG/DL <110 MG/DL BORDERLINE-HIGH RISK: 130- 159 MG/DL 110-129 MG/DL HIGH RISK: >160 MG/DL >130 MG/DL *CHILDREN AND ADOLESCENTS REPRESENTS INDIVIDUALA AGED 2-19 YEARS EXCLUSIVE. MCH 32.1 pg 26.0-32.0 Above high normal [facility] ([facility] NORMAL RANGES Age WBC RBC HGB HCT [...] HCT IS 5% LESS SOURCE FOR DATA: Hyginex 1800 OPERATION MANUAL( AUTOMATED BLOOD COUNTS AND [...] DESIRABLE: <130 MG/DL <110 MG/DL BORDERLINE-HIGH RISK: 130- 159 MG/DL 110-129 MG/DL HIGH RISK: >160 MG/DL >130 MG/DL *CHILDREN AND ADOLESCENTS REPRESENTS INDIVIDUALA AGED 2-19 YEARS EXCLUSIVE. PLT 255 10E3/uL 140-440 [facility] ([facility] NORMAL RANGES Age WBC RBC HGB HCT [...] HCT IS 5% LESS SOURCE FOR DATA: [employer] DYN 1800 OPERATION MANUAL( AUTOMATED BLOOD COUNTS AND [...] DESIRABLE: <130 MG/DL <110 MG/DL BORDERLINE-HIGH RISK: 130- 159 MG/DL 110-129 MG/DL HIGH RISK: >160 MG/DL >130 MG/DL *CHILDREN AND ADOLESCENTS REPRESENTS INDIVIDUALA AGED 2-19 YEARS EXCLUSIVE. Lym% 29.0 % 10.0-58.5 [facility] ([facility] NORMAL RANGES Age WBC RBC HGB HCT [...] HCT IS 5% LESS SOURCE FOR DATA: Hyginex 1800 OPERATION MANUAL( AUTOMATED BLOOD COUNTS AND [...] DESIRABLE: <130 MG/DL <110 MG/DL BORDERLINE-HIGH RISK: 130- 159 MG/DL 110-129 MG/DL HIGH RISK: >160 MG/DL >130 MG/DL *CHILDREN AND ADOLESCENTS REPRESENTS INDIVIDUALA AGED 2-19 YEARS EXCLUSIVE. RDW-CV 13.8 % 11.5-14.5 [facility] NORMAL RANGES Age WBC RBC HGB HCT [...] HCT IS 5% LESS SOURCE FOR DATA: Hyginex 1800 OPERATION MANUAL( AUTOMATED BLOOD COUNTS AND [...] DESIRABLE: <130 MG/DL <110 MG/DL BORDERLINE-HIGH RISK: 130- 159 MG/DL 110-129 MG/DL HIGH RISK: >160 MG/DL >130 MG/DL *CHILDREN AND ADOLESCENTS REPRESENTS INDIVIDUALA AGED 2-19 YEARS EXCLUSIVE. Lym# 1.2 10E3/uL 0.6-4.1 [facility] ([facility] NORMAL RANGES Age WBC RBC HGB HCT [...] HCT IS 5% LESS SOURCE FOR DATA: [employer] DYN 1800 OPERATION MANUAL( AUTOMATED BLOOD COUNTS AND [...] DESIRABLE: <130 MG/DL <110 MG/DL BORDERLINE-HIGH RISK: 130- 159 MG/DL 110-129 MG/DL HIGH RISK: >160 MG/DL >130 MG/DL *CHILDREN AND ADOLESCENTS REPRESENTS INDIVIDUALA AGED 2-19 YEARS EXCLUSIVE. Neut% 60.1 % 37.0-92.0 [facility] ([facility] NORMAL RANGES Age WBC RBC HGB HCT [...] HCT IS 5% LESS SOURCE FOR DATA: Hyginex 1800 OPERATION MANUAL( AUTOMATED BLOOD COUNTS AND [...] DESIRABLE: <130 MG/DL <110 MG/DL BORDERLINE-HIGH RISK: 130- 159 MG/DL 110-129 MG/DL HIGH RISK: >160 MG/DL >130 MG/DL *CHILDREN AND ADOLESCENTS REPRESENTS INDIVIDUALA AGED 2-19 YEARS EXCLUSIVE. MXD% 10.9 % 0.1-24.0 [facility] ([facility] NORMAL RANGES Age WBC RBC HGB HCT [...] HCT IS 5% LESS SOURCE FOR DATA: Hyginex 1800 OPERATION MANUAL( AUTOMATED BLOOD COUNTS AND [...] DESIRABLE: <130 MG/DL <110 MG/DL BORDERLINE-HIGH RISK: 130- 159 MG/DL 110-129 MG/DL HIGH RISK: >160 MG/DL >130 MG/DL *CHILDREN AND ADOLESCENTS REPRESENTS INDIVIDUALA AGED 2-19 YEARS EXCLUSIVE. Neut# 2.5 % 2.0-7.8 [facility] ([facility] NORMAL RANGES Age WBC RBC HGB HCT [...] HCT IS 5% LESS SOURCE FOR DATA: [employer] DYN 1800 OPERATION MANUAL( AUTOMATED BLOOD COUNTS AND [...] DESIRABLE: <130 MG/DL <110 MG/DL BORDERLINE-HIGH RISK: 130- 159 MG/DL 110-129 MG/DL HIGH RISK: >160 MG/DL >130 MG/DL *CHILDREN AND ADOLESCENTS REPRESENTS INDIVIDUALA AGED 2-19 YEARS EXCLUSIVE. MXD# 0.4 10E3/uL 0.0-1.8 [facility] ([facility] NORMAL RANGES Age WBC RBC HGB HCT [...] HCT IS 5% LESS SOURCE FOR DATA: Hyginex 1800 OPERATION MANUAL( AUTOMATED BLOOD COUNTS AND [...] DESIRABLE: <130 MG/DL <110 MG/DL BORDERLINE-HIGH RISK: 130- 159 MG/DL 110-129 MG/DL HIGH RISK: >160 MG/DL >130 MG/DL *CHILDREN AND ADOLESCENTS REPRESENTS INDIVIDUALA AGED 2-19 YEARS EXCLUSIVE. MPV 9.1 fL 9.0-13.0 [facility] NORMAL RANGES Age WBC RBC HGB HCT [...] HCT IS 5% LESS SOURCE FOR DATA: Hyginex 1800 OPERATION MANUAL( AUTOMATED BLOOD COUNTS AND [...] DESIRABLE: <130 MG/DL <110 MG/DL BORDERLINE-HIGH RISK: 130- 159 MG/DL 110-129 MG/DL HIGH RISK: >160 MG/DL >130 MG/DL *CHILDREN AND ADOLESCENTS REPRESENTS INDIVIDUALA AGED 2-19 YEARS EXCLUSIVE. ID Date Data Source [id number] 03/02/2021 09:28:00 AM EDT [facility] ([facility] [facility] Name Value Range Interpretation Code Description Data Tammy rce(s) Supporting Document(s) Hemoglobin A1c/Hemoglobin.total in Blood 5.3 % 4.50-6.20 [facility] ([facility] ID Date Data Source [id number] 03/02/2021 09:27:00 AM EDT [facility] ([facility] Name Value Range Interpretation Code Description Data Tammy rce(s) Supporting Document(s) Thyrotropin [Units/volume] in Serum or Plasma 2.946 ulU/mL 0.60-4.8 [facility] ([facility] ID Date Data Source [id number] 07/27/2020 01:27:00 PM EDT [facility] ([facility] Name Value Range Interpretation Code Description Data Tammy rce(s) Supporting Document(s) Prostate specific Ag [Mass/volume] in Serum or Plasma 0.77 ng/mL Normal (applies to non-numeric results) [facility] ([facility] The PSA assay is performed on the [employer] analyzer by LOCI sandwich chemiluminescent immunoassay and should not be compared interchangeably with other methods. It should not be used alone as a screening test or diagnosis for the presence or absence of malignant disease. Predictions of disease recurrence should not be based solely on values obtained from serial patient serum values. Procedure Social History Code Duration Value Status Description Data Source(s ) Smoking 07/23/2020 03:29:02 PM EDT Smokes tobacco daily (findi ng) completed Smokes tobacco daily (finding) [facility] (Ofelia Rizzo MD [facility]) Vital Signs ID Date Data Source UNK Name Value Range Interpretation Code Description Data Source(s) Systolic blood pressure 158 mm[Hg] 158 mm[Hg] M [facility] ([facility]) Diastolic blood pressure 87 mm[Hg] 87 mm[Hg] [facility] ([facility]) Body temperature 98.4 [degF] 98.4 [degF] [facility] ([facility]) Body height 72 [in_i] 72 [in_i] [facility] ([facility]) 6'0" Body weight 201.50 [lb_av] 201.50 [lb_av] [facility] Body mass index (BMI) [Ratio] 27.3 kg/m2 27.3 k g/m2 [facility] ([facility]) [place] body weight 178 [lb_av] 178 [lb_av] [facility] Body weight 91.400 kg 91.400 kg [facility] ([facility]) Body surface area Derived from formula 2.14 m2 2.14 m2 [facility] ([facility]) Systolic blood pressure 128 mm[Hg] 128 mm[Hg] M [facility] ([facility] Diastolic blood pressure 72 mm[Hg] 72 mm[Hg] [facility] ([facility] Body temperature 97.8 [degF] 97.8 [degF] [facility] ([facility] Heart rate 77 /min 77 /min [facility] ([facility] Respiratory rate 18 /min 18 /min [facility] ( [facility] Body height 72 [in_i] 72 [in_i] [facility] ([facility] 6'0" Body weight 203.00 [lb_av] 203.00 [lb_av] [facility] ([facility] [place] body weight 178 [lb_av] 178 [lb_av] [facility] ([facility] Body mass index (BMI) [Ratio] 27.5 kg/m2 27.5 k g/m2 [facility] ([facility] Oxygen saturation in Arterial blood by Pulse oximetry 98 % 98 % [facility] ([facility] Body mass index (BMI) [Ratio] 27.3 kg/m2 27.3 k g/m2 [facility] ([facility] Body weight 201.00 [lb_av] 201.00 [lb_av] [facility] ([facility] Oxygen saturation in Arterial blood by Pulse oximetry 97 % 97 % [facility] ([facility] Heart rate 85 /min 85 /min [facility] ([facility] Respiratory rate 18 /min 18 /min [facility] ( [facility] Body height 72 [in_i] 72 [in_i] [facility] ([facility] 6'0" [place] body weight 178 [lb_av] 178 [lb_av] [facility] ([facility] Systolic blood pressure 130 mm[Hg] 130 mm[Hg] M [facility] ([facility] Diastolic blood pressure 80 mm[Hg] 80 mm[Hg] [facility] ([facility] Body temperature 98.0 [degF] 98.0 [degF] [facility] ([facility] Heart rate 71 /min 71 /min [facility] Respiratory rate 16 /min 16 /min [facility] ( [facility] Body height 72 [in_i] 72 [in_i] [facility] ([facility] 6'0" Systolic blood pressure 138 mm[Hg] 138 mm[Hg] M [facility] ([facility] Diastolic blood pressure 80 mm[Hg] 80 mm[Hg] [facility] ([facility] Body temperature 98.0 [degF] 98.0 [degF] [facility] ([facility] Body weight 206.00 [lb_av] 206.00 [lb_av] [facility] ([facility] [place] body weight 178 [lb_av] 178 [lb_av] [facility] ([facility] Oxygen saturation in Arterial blood by Pulse oximetry 98 % 98 % [facility] ([facility] Body mass index (BMI) [Ratio] 27.9 kg/m2 27.9 k g/m2 [facility] ([facility] Systolic blood pressure 124 mm[Hg] 124 mm[Hg] M [facility] ([facility] Diastolic blood pressure 76 mm[Hg] 76 mm[Hg] [facility] ([facility] Body temperature 99.1 [degF] 99.1 [degF] [facility] ([facility] Oxygen saturation in Arterial blood by Pulse oximetry 97 % 97 % [facility] ([facility] Heart rate 96 /min 96 /min [facility] ([facility] Respiratory rate 18 /min 18 /min [facility] ( [facility] Body height 72 [in_i] 72 [in_i] [facility] ([facility] 6'0" Body weight 202.00 [lb_av] 202.00 [lb_av] [facility] ([facility] [place] body weight 178 [lb_av] 178 [lb_av] [facility] ([facility] Body mass index (BMI) [Ratio] 27.4 kg/m2 27.4 k g/m2 [facility] ([facility]
[2021-08-11] MEDS ORDERED: LIDOCAINE 2% 100MG/5ML SDV (FOR ANES.) As Ordered ONE (09:37)
[2021-08-11] MEDS ORDERED: propofoL 200 MG/20 ML VIAL As Ordered ONE ×2 (09:37→10:41)
--- NOTE | 2021-08-11 10:54 | ROOR ---
Patient Name: Tad Peck Procedure Date: 08/11/2021 10:28 AM Date of : 1950 Age: 71 Room: [facility] Gender: Male Note Status: Finalized Procedure: Colonoscopy Indications: Hematochezia Providers: DO Bettie Mcclendon MD: ADLTON GALVEZ Requesting Provider: Medicines: Propofol per Anesthesia Complications: No immediate complications. Procedure: Pre-Anesthesia Assessment: - Prior to the procedure, a History and Physical was performed, and patient medications and allergies were reviewed. The patient is competent. The risks and benefits of the procedure and the sedation options and risks were discussed with the patient. All questions were answered and informed consent was obtained. Patient identification and proposed procedure were verified by the physician, the nurse, the anesthesiologist and the store facility technician in the endoscopy suite. Mental Status Examination: alert and oriented. Airway Examination: normal oropharyngeal airway and neck mobility. Respiratory Examination: clear to auscultation. CV Examination: normal. Prophylactic Antibiotics: The patient does not require prophylactic antibiotics. Prior Anticoagulants: The patient has taken no previous anticoagulant or antiplatelet agents. ASA Grade Assessment: III - A patient with severe systemic disease. After reviewing the risks and benefits, the patient was deemed in satisfactory condition to undergo the procedure. The anesthesia plan was to use monitored anesthesia care (MAC). Immediately prior to administration of medications, the patient was re-assessed for adequacy to receive sedatives. The heart rate, respiratory rate, oxygen saturations, blood pressure, adequacy of pulmonary ventilation, and response to care were monitored throughout the procedure. The physical status of the patient was re-assessed after the procedure. The Colonoscope was introduced through the anus and advanced to the cecum, identified by appendiceal orifice and ileocecal valve. The colonoscopy was performed without difficulty. The patient tolerated the procedure well. Findings: Non-bleeding internal hemorrhoids were found during retroflexion. The hemorrhoids were mild and Grade I (internal hemorrhoids that do not prolapse). Two hyperplastic polyps were found in the descending colon and ascending colon. The polyps were 2 to 4 mm in size. These polyps were removed with a jumbo cold forceps. Resection and retrieval were complete. Estimated blood loss was minimal. Two pedunculated polyps were found in the sigmoid colon and descending colon. The polyps were 5 to 9 mm in size. These polyps were removed with a hot snare. Resection and retrieval were complete. Estimated blood loss was minimal. Multiple small and large-mouthed diverticula were found in the sigmoid colon. Impression: - Non-bleeding internal hemorrhoids. - Two 2 to 4 mm polyps in the descending colon and in the ascending colon, removed with a jumbo cold forceps. Resected and retrieved. - Two 5 to 9 mm polyps in the sigmoid colon and in the descending colon, removed with a hot snare. Resected and retrieved. Recommendation: - Patient has a contact number available for emergencies. The signs and symptoms of potential delayed complications were discussed with the patient. Return to normal activities tomorrow. Written discharge instructions were provided to the patient. - Await pathology results. - Repeat colonoscopy in 3 - 5 years for surveillance of multiple polyps. - Return to physician assurance assistant at appointment to be scheduled. Procedure Code(s): --- Professional --- 52145, Colonoscopy, flexible; with removal of tumor(s), polyp(s), or other lesion(s) by snare technique [id number], 59, Colonoscopy, flexible; with biopsy, single or multiple Diagnosis Code(s): --- Professional --- K64.0, First degree hemorrhoids K63.5, Polyp of colon K92.1, Melena (includes Hematochezia) CPT copyright 2019 [employer]. All rights reserved. The codes documented in this report are preliminary and upon asset manager review may be revised to meet current compliance requirements. Murali Harden DO 08/11/2021 10:54:21 AM Electronically signed by Murali Harden DO Number of Addenda: 0 Note Initiated On: 08/11/2021 10:28 AM Estimated Blood Loss: Estimated blood loss was minimal. Estimated blood loss was minimal.
[2021-08-11 11:15] VITALS: BP 131/72
== END 2021-08-11 11:25 | disposition home or self-care (01) ==
LOC: M OPP 09:24
PROVIDERS: ATTEND Surgery
DX: Z12.11 Encounter for screening for malignant neoplasm of colon (principal); D12.2 Benign neoplasm of ascending colon; D12.4 Benign neoplasm of descending colon; D12.5 Benign neoplasm of sigmoid colon; K57.30 Diverticulosis of large intestine without perforation or abscess without bleeding; K64.0 First degree hemorrhoids; K92.1 Melena; Z85.46 Personal history of malignant neoplasm of prostate; F17.210 Nicotine dependence, cigarettes, uncomplicated

== ENCOUNTER → 2022-03-23 | Outpatient (CLI) | payer MEDICARE, BC ==
[~2022-03-23] MED LIST changes: +CYAN500T14 PO; +IRON65TA2 PO; -NS 1,000 ML IV ONE
== END ==
LOC: M LABSMTC 11:45
PROVIDERS: ATTEND Anesthesiology
DX: Z01.812 Encounter for preprocedural laboratory examination (principal)

== ENCOUNTER 2022-03-28 08:57 | Day surgery (SDC) | payer MEDICARE ==
[~2022-03-28] VITALS: Ht 182.9 cm; Wt 91.6 kg
[2022-03-28] MEDS ORDERED: BACITRACIN OINTMENT 30GM TUBE TOP SCH (09:00)
[2022-03-28] MEDS ORDERED: BACITRACIN OINTMENT 30GM TUBE As Ordered ONE (09:30)
[2022-03-28] MEDS ORDERED: METHYLENE BLUE 0.5% (5MG/ML) 10 ML AMP (PROVAYBLUE) As Ordered ONE (09:30)
[2022-03-28] MEDS ORDERED: LIDOCAINE W/EPINEPHRINE 1% 20ML VIAL As Ordered ONE (09:30)
[2022-03-28] MEDS ORDERED: EPINEPHrine 1MG/ML INJ 30ML MD-VIAL As Ordered ONE (09:30)
[2022-03-28] MEDS ORDERED: fentaNYL 100 MCG/2 ML INJECTION As Ordered ONE ×2 (09:32→10:33)
[2022-03-28] MEDS ORDERED: ROCURONIUM BROMIDE 50 MG/5 ML VIAL As Ordered ONE (09:34)
[2022-03-28] MEDS ORDERED: ONDANSETRON 4MG/2ML VIAL As Ordered ONE (10:14)
[2022-03-28] MEDS ORDERED: propofoL 200 MG/20 ML VIAL As Ordered ONE (10:15)
[2022-03-28] MEDS ORDERED: dexameTHASONE 4 MG/ML 1ML VIAL (J1100 PER 1MG) As Ordered ONE (10:15)
[2022-03-28] MEDS ORDERED: SUGAMMADEX SODIUM 500 MG/5 ML VIAL (BRIDION) As Ordered ONE (10:15)
[2022-03-28] MEDS ORDERED: LIDOCAINE 2% 100MG/5ML SDV (FOR ANES.) As Ordered ONE (10:16)
[2022-03-28] MEDS ORDERED: ePHEDrine SULFATE 25 MG/5 ML(5MG/ML) SYRINGE As Ordered ONE (10:18)
[2022-03-28] MEDS ORDERED: PHENYLephrine 500MCG 5ML (100MCG/ML) SYRINGE As Ordered ONE (10:18)
[2022-03-28] MEDS ORDERED: CLINDAMYCIN 600MG/50ML PREMIX BAG As Ordered ONE (10:31)
[2022-03-28] MEDS ORDERED: LEVALBUTEROL 1.25 MG/0.5 ML CONCENTRATE NEB As Ordered ONE (11:35)
[2022-03-28] MEDS ORDERED: LEVALBUTEROL 1.25 MG/0.5 ML CONCENTRATE NEB INH ONE (11:35)
[2022-03-28] MEDS ORDERED: fentaNYL 100 MCG/2 ML INJECTION IV PRN (11:55)
[2022-03-28] MEDS ORDERED: oxyCODONE 5MG TAB PO PRN (11:55)
[2022-03-28] MEDS ORDERED: ONDANSETRON 4MG/2ML VIAL IV PRN ×2 (11:55→12:10)
[2022-03-28] MEDS ORDERED: LR 1,000 ML IV SCH ×2 (11:55→12:05)
[2022-03-28] MEDS ORDERED: HYDROMORPHONE HCL 0.5 MG/ 0.5 ML SYRINGE (J1170 PER 1) IV PRN (11:55)
[2022-03-28] MEDS ORDERED: ANEXSIA, NORCO 7.5MG/325MG TABLET(HYDROCODONE/APAP) PO PRN (12:10)
[2022-03-28 12:35] VITALS: BP 125/70
== END 2022-03-28 12:53 | disposition home or self-care (01) ==
LOC: M SDC 08:57
PROVIDERS: ATTEND Otolaryngology
DX: C44.02 Squamous cell carcinoma of skin of lip (principal); J30.9 Allergic rhinitis, unspecified
CPT/HCPCS: 11643; 12052; 88305; 88331; J0171; J1100; J2370; J2405; J3010; Q9968

== ENCOUNTER → 2022-05-20 | Outpatient (REF) | payer MEDICARE | LOC: M LAB REF 16:14 | PROVIDERS: ATTEND Student in an Organized Health Care Education/Training Program | DX: R30.0 Dysuria (principal) ==

== ENCOUNTER → 2022-06-02 | Outpatient (REF) | payer MEDICARE | LOC: M WUC 19:33 | PROVIDERS: ATTEND Physician Assistant | DX: N39.0 Urinary tract infection, site not specified (principal) ==

== ENCOUNTER → 2022-06-08 | Outpatient (CLI) | payer MEDICARE | LOC: M PLAIMG 11:41 | PROVIDERS: ATTEND Physician Assistant | DX: M19.072 Primary osteoarthritis, left ankle and foot (principal) ==

== ENCOUNTER → 2022-07-27 | Outpatient (CLI) | payer MEDICARE | LOC: M LAB 11:41 | PROVIDERS: ATTEND General Practice | DX: C61 Malignant neoplasm of prostate (principal) ==

== ENCOUNTER → 2022-08-03 | Outpatient (CLI) | payer MEDICARE | LOC: M ONCR 10:57 | PROVIDERS: ATTEND General Practice | DX: Z08 Encounter for follow-up examination after completed treatment for malignant neoplasm (principal); Z85.46 Personal history of malignant neoplasm of prostate; R97.21 Rising PSA following treatment for malignant neoplasm of prostate; J30.89 Other allergic rhinitis; Z86.010 Personal history of colon polyps; Z79.899 Other long term (current) drug therapy; Z92.23 Personal history of estrogen therapy; Z92.3 Personal history of irradiation ==

== ENCOUNTER → 2023-01-19 | Outpatient (CLI) | payer MEDICARE ==
[2023-01-19 10:32] LABS: HEMATOCRIT 40.7 % (42.0-52.0); HEMOGLOBIN 13.9 g/dl (13.5-17.5); MEAN CORPUSCULAR HEMOGLOBIN 33.7 pg (27.0-33.0); MEAN CORPUSCULAR HGB CONC 34.2 g/dl (32.0-36.5); MEAN CORPUSCULAR VOLUME 98.8 fl (80.0-96.0); PLATELET COUNT, AUTOMATED 234 10^3/uL (150-450); RED BLOOD COUNT 4.12 10^6/uL (4.30-6.10); WHITE BLOOD COUNT 5.4 10^3/uL (4.0-10.0)
[2023-01-19 10:40] LABS: APPEARANCE, URINE HAZY (CLEAR); BACTERIA, URINE AUTO NEGATIVE (NEGATIVE); BILIRUBIN, URINE AUTO NEGATIVE (NEGATIVE); BLOOD, URINE BLOOD 1+ (NEGATIVE); COLOR, URINE YELLOW (YELLOW); GLUCOSE, URINE (UA) AUTO NEGATIVE (NEGATIVE); KETONE, URINE AUTO NEGATIVE (NEGATIVE); LEUKOCYTE ESTERASE, URINE AUTO NEGATIVE (NEGATIVE); NITRITE, URINE AUTO NEGATIVE (NEGATIVE); PROTEIN, URINE AUTO NEGATIVE (NEGATIVE); RBC, URINE AUTO 3 /HPF (0-3); SPECIFIC GRAVITY URINE AUTO 1.014 (1.002-1.035); SQUAMOUS EPITHELIAL CELL UR AU 0 /HPF (0-6); UROBILINOGEN, URINE AUTO 0.2 mg/dL (0.0-2.0); WBC, URINE AUTO 0 /HPF (0-3)
[2023-01-19 10:55] LABS: ALBUMIN 3.6 G/DL (3.2-5.2); ALKALINE PHOSPHATASE 79 U/L (46-116); ALT/SGPT 23 U/L (7.0-40); AST/SGOT 19 U/L (<34); BLOOD UREA NITROGEN 19 MG/DL (9-23); CALCIUM LEVEL 8.9 MG/DL (8.3-10.6); CARBON DIOXIDE LEVEL 24 MMOL/L (20-31); CHLORIDE LEVEL 107 MMOL/L (98-107); CHOLESTEROL LEVEL 183 MG/DL (<200); CHOLESTEROL RISK RATIO 3.43 (<5); CREATININE FOR GFR 0.81 MG/DL (0.70-1.30); GLOMERULAR FILTRATION RATE > 60.0 (>42); GLUCOSE, FASTING 108 MG/DL (74-106); HDL CHOLESTEROL 53.2 MG/DL (>40); LDL CHOLESTEROL 109.6 MG/DL (<100); NON-HDL-C 129.8 MG/DL; POTASSIUM SERUM 4.1 MMOL/L (3.5-5.1); PROSTATIC SPECIFIC AG MONITOR 0.77 NG/ML (< 4.00); SODIUM LEVEL 138 MMOL/L (136-145); TOTAL PROTEIN 6.6 G/DL (5.7-8.2); TRIGLYCERIDES LEVEL 101 MG/DL (<150)
== END ==
LOC: M LAB 09:45
PROVIDERS: ATTEND Physician Assistant
DX: I10 Essential (primary) hypertension (principal); E78.5 Hyperlipidemia, unspecified; R97.20 Elevated prostate specific antigen [PSA]; R35.1 Nocturia

== ENCOUNTER → 2024-03-08 | Outpatient (CLI) | payer MEDICARE ==
[2024-03-08 15:59] LABS: HEMATOCRIT 43.6 % (42.0-52.0); HEMOGLOBIN 14.8 g/dl (13.5-17.5); MEAN CORPUSCULAR HGB CONC 33.9 g/dl (32.0-36.5); MEAN CORPUSCULAR VOLUME 100.2 fl (80.0-96.0); PLATELET COUNT, AUTOMATED 246 10^3/uL (150-450); RED BLOOD COUNT 4.35 10^6/uL (4.30-6.10); WHITE BLOOD COUNT 6.6 10^3/uL (4.0-10.0)
[2024-03-08 16:32] LABS: ALBUMIN 3.3 G/DL (3.2-5.2); ALKALINE PHOSPHATASE 102 U/L (46-116); ALT/SGPT 17 U/L (7.0-40); AST/SGOT 10 U/L (<34); BILIRUBIN,TOTAL 0.7 MG/DL (0.3-1.2); BLOOD UREA NITROGEN 11 MG/DL (9-23); CALCIUM LEVEL 9.1 MG/DL (8.3-10.6); CARBON DIOXIDE LEVEL 27 MMOL/L (20-31); CHLORIDE LEVEL 110 MMOL/L (98-107); CHOLESTEROL LEVEL 154 MG/DL (<200); CHOLESTEROL RISK RATIO 3.06 (<5); GLOMERULAR FILTRATION RATE > 60.0 (>42); GLUCOSE, FASTING 115 MG/DL (74-106); HDL CHOLESTEROL 50.2 MG/DL (>40); LDL CHOLESTEROL 82.2 MG/DL (<100); NON-HDL-C 103.8 MG/DL; POTASSIUM SERUM 4.6 MMOL/L (3.5-5.1); SODIUM LEVEL 142 MMOL/L (136-145); TOTAL PROTEIN 6.5 G/DL (5.7-8.2); TRIGLYCERIDES LEVEL 108 MG/DL (<150)
[2024-03-08 16:34] LABS: THYROID STIMULATING HORMONE 1.852 uIU/ML (0.55-4.78)
== END ==
LOC: M PLALAB 13:01
PROVIDERS: ATTEND Physician Assistant
DX: E78.5 Hyperlipidemia, unspecified (principal); I10 Essential (primary) hypertension; J44.9 Chronic obstructive pulmonary disease, unspecified

== ENCOUNTER → 2024-04-28 | Outpatient (REF) | payer MEDICARE ==
[2024-04-28 17:57] LABS: APPEARANCE, URINE HAZY (CLEAR); BACTERIA, URINE AUTO 1+ (NEGATIVE); BILIRUBIN, URINE AUTO NEGATIVE (NEGATIVE); BLOOD, URINE BLOOD 3+ (NEGATIVE); COLOR, URINE YELLOW (YELLOW); GLUCOSE, URINE (UA) AUTO NEGATIVE (NEGATIVE); KETONE, URINE AUTO NEGATIVE (NEGATIVE); LEUKOCYTE ESTERASE, URINE AUTO 3+ (NEGATIVE); MUCUS, URINE SMALL (NEGATIVE); NITRITE, URINE AUTO NEGATIVE (NEGATIVE); PROTEIN, URINE AUTO 1+ mg/dL (NEGATIVE); RBC, URINE AUTO 19 /HPF (0-3); SQUAMOUS EPITHELIAL CELL UR AU 0 /HPF (0-6); UROBILINOGEN, URINE AUTO 0.2 mg/dL (0.0-2.0); WBC, URINE AUTO 56 /HPF (0-3)
== END ==
LOC: M LAB REF 17:00
PROVIDERS: ATTEND Physician Assistant Medical
DX: N39.0 Urinary tract infection, site not specified (principal)

== ENCOUNTER → 2024-05-25 | Outpatient (REF) | payer MEDICARE ==
[2024-05-25 18:18] LABS: APPEARANCE, URINE CLOUDY (CLEAR); BACTERIA, URINE AUTO NEGATIVE (NEGATIVE); BILIRUBIN, URINE AUTO NEGATIVE (NEGATIVE); BLOOD, URINE BLOOD 3+ (NEGATIVE); COLOR, URINE AMBER (YELLOW); GLUCOSE, URINE (UA) AUTO NEGATIVE (NEGATIVE); KETONE, URINE AUTO NEGATIVE (NEGATIVE); LEUKOCYTE ESTERASE, URINE AUTO 3+ (NEGATIVE); NITRITE, URINE AUTO NEGATIVE (NEGATIVE); PROTEIN, URINE AUTO 2+ mg/dL (NEGATIVE); RBC, URINE AUTO TNTC /HPF (0-3); SPECIFIC GRAVITY URINE AUTO 1.014 (1.002-1.035); SQUAMOUS EPITHELIAL CELL UR AU 0 /HPF (0-6); UROBILINOGEN, URINE AUTO 0.2 mg/dL (0.0-2.0); WBC, URINE AUTO TNTC /HPF (0-3)
== END ==
LOC: M LAB REF 18:03
PROVIDERS: ATTEND Physician Assistant Medical
DX: N39.0 Urinary tract infection, site not specified (principal)

== ENCOUNTER → 2024-06-20 | Outpatient (CLI) | payer MEDICARE | LOC: M PLALAB 14:07 | PROVIDERS: ATTEND Physician Assistant | DX: C61 Malignant neoplasm of prostate (principal) ==

== ENCOUNTER → 2025-02-26 | Outpatient (CLI) | payer MEDICARE ==
[2025-02-26 14:06] LABS: HEMOGLOBIN 12.6 g/dl (13.5-17.5); MEAN CORPUSCULAR HEMOGLOBIN 33.2 pg (27.0-33.0); MEAN CORPUSCULAR HGB CONC 33.2 g/dl (32.0-36.5); PLATELET COUNT, AUTOMATED 280 10^3/uL (150-450)
[2025-02-26 14:07] LABS: APPEARANCE, URINE CLEAR (CLEAR); BACTERIA, URINE AUTO NEGATIVE (NEGATIVE); BILIRUBIN, URINE AUTO NEGATIVE (NEGATIVE); BLOOD, URINE BLOOD NEGATIVE (NEGATIVE); COLOR, URINE YELLOW (YELLOW); GLUCOSE, URINE (UA) AUTO NEGATIVE (NEGATIVE); KETONE, URINE AUTO NEGATIVE (NEGATIVE); LEUKOCYTE ESTERASE, URINE AUTO NEGATIVE (NEGATIVE); NITRITE, URINE AUTO NEGATIVE (NEGATIVE); PROTEIN, URINE AUTO NEGATIVE (NEGATIVE); RBC, URINE AUTO 7 /HPF (0-3); SPECIFIC GRAVITY URINE AUTO 1.015 (1.002-1.035); SQUAMOUS EPITHELIAL CELL UR AU 0 /HPF (0-6); UROBILINOGEN, URINE AUTO 0.2 mg/dL (0.0-2.0); WBC, URINE AUTO 1 /HPF (0-3)
[2025-02-26 14:29] LABS: HEMOGLOBIN A1c 5.1 % (4.0-6.0)
[2025-02-26 14:31] LABS: ALBUMIN 3.3 G/DL (3.2-5.2); ALKALINE PHOSPHATASE 92 U/L (40-129); ALT/SGPT 14 U/L (7.0-40); AST/SGOT 11 U/L (<34); BILIRUBIN,TOTAL 0.5 MG/DL (0.3-1.2); BLOOD UREA NITROGEN 19 MG/DL (9-23); CALCIUM LEVEL 9.1 MG/DL (8.3-10.6); CARBON DIOXIDE LEVEL 26 MMOL/L (20-31); CHLORIDE LEVEL 106 MMOL/L (98-107); CHOLESTEROL LEVEL 147 MG/DL (<200); CREATININE FOR GFR 0.77 MG/DL (0.70-1.30); GLOMERULAR FILTRATION RATE > 90.0 (>42); GLUCOSE, FASTING 108 MG/DL (74-106); HDL CHOLESTEROL 54.4 MG/DL (>40); LDL CHOLESTEROL 77.8 MG/DL (<100); NON-HDL-C 92.6 MG/DL; PROSTATIC SPECIFIC AG MONITOR 1.96 NG/ML (< 4.00); SODIUM LEVEL 142 MMOL/L (136-145); TOTAL PROTEIN 6.5 G/DL (5.7-8.2); TRIGLYCERIDES LEVEL 74 MG/DL (<150)
== END ==
LOC: M PLALAB 10:49
PROVIDERS: ATTEND Physician Assistant
DX: I10 Essential (primary) hypertension (principal); R97.20 Elevated prostate specific antigen [PSA]

== ENCOUNTER → 2025-06-12 | Outpatient (CLI) | payer MEDICARE ==
[~2025-06-12] MED LIST changes: +LISI40TA10 PO; -LISI40TA4 PO
[2025-06-12 14:02] LABS: CALCIUM LEVEL 9.1 MG/DL (8.3-10.6); CARBON DIOXIDE LEVEL 25.0 MMOL/L (20-31); CHLORIDE LEVEL 107.0 MMOL/L (98-107); CREATININE FOR GFR 0.88 MG/DL (0.70-1.30); GLOMERULAR FILTRATION RATE 89.1 (>42); POTASSIUM SERUM 4.3 MMOL/L (3.5-5.1); SODIUM LEVEL 142.0 MMOL/L (136-145)
== END ==
LOC: M PLALAB 11:45
PROVIDERS: ATTEND Urology
DX: R82.89 Other abnormal findings on cytological and histological examination of urine (principal)

== ENCOUNTER → 2025-06-20 | Outpatient (CLI) | payer MEDICARE ==
[~2025-06-20] MED LIST changes: +ISOVUE-370 76% 100 ML VIAL ONE
== END ==
LOC: M PLAIMG 12:55
PROVIDERS: ATTEND Urology
DX: R82.89 Other abnormal findings on cytological and histological examination of urine (principal)
CPT/HCPCS: 74178; Q9967

== ENCOUNTER → 2025-07-28 | Outpatient (REF) | payer MEDICARE ==
[~2025-07-28] MED LIST changes: -ISOVUE-370 76% 100 ML VIAL ONE
[2025-07-28 13:21] LABS: BACTERIA, URINE AUTO NEGATIVE (NEGATIVE); RBC, URINE AUTO 13 /HPF (0-3); SQUAMOUS EPITHELIAL CELL UR AU 1 /HPF (0-6); WBC, URINE AUTO 72 /HPF (0-3)
[2025-07-28 13:31] LABS: APPEARANCE, URINE HAZY (CLEAR); BILIRUBIN, URINE AUTO NEGATIVE (NEGATIVE); BLOOD, URINE BLOOD NEGATIVE (NEGATIVE); GLUCOSE, URINE (UA) AUTO NEGATIVE (NEGATIVE); KETONE, URINE AUTO NEGATIVE (NEGATIVE); LEUKOCYTE ESTERASE, URINE AUTO 2+ (NEGATIVE); NITRITE, URINE AUTO NEGATIVE (NEGATIVE); PROTEIN, URINE AUTO 1+ mg/dL (NEGATIVE); SPECIFIC GRAVITY URINE AUTO 1.013 (1.002-1.035); UROBILINOGEN, URINE AUTO 0.2 mg/dL (0.0-2.0)
== END ==
LOC: EEVIPCON 12:38 → M SMT 12:38
PROVIDERS: ATTEND Urology
DX: N39.0 Urinary tract infection, site not specified (principal)